=== PATIENT | male | born 1935 | race Caucasian/White ===

== ENCOUNTER 2021-06-08 08:28 | Outpatient (CLI) | payer MEDICARE, SELFPAY ==
--- NOTE | ~2021-06-08 | CT_ITS ---
EXAMINATION: CTA LE BI EXAM DATE: 06/08/2021 09:29 INDICATION: Bilateral leg pain. Lightheadedness. TECHNIQUE: Spiral CTA LE BI was performed following intravenous injection of 150 mL Omnipaque 350. A xial, coronal and sagittal images were reviewed. The dose-length product (DLP) for this examination was 944.59 mGy-cm. The exposure was tailored according to patient size (auto mA exposure control), a nd iterative reconstruction (ASIR) was used as additional dose reduction technique. Correlation is ma de to CT abdomen 09/22/2019. FINDINGS: Arteries: There is moderate aortoiliac arterial sclerosis. The renal arteries, superior and inferior mesenteric arteries, celiac artery appear widely patent. Mild scattered superficial femoral arterial sclerosis and popliteal arterial sclerosis without stenosis. There is 3 vessel runoff to the feet young aterally. Incidental findings: Large right renal cyst again seen. Adrenal glands and other organs are unremarka ble. Cholecystectomy. Normal appendix. Prostatectomy. Mild diffuse bladder wall thickening could yovani cele chronic cystitis. There are no osteoblastic or osteolytic lesions identified. IMPRESSION: Mild bilateral lower extremity arterial sclerosis. Three-vessel runoff bilaterally. Reviewed, dictated and finalized at location A. IMPRESSION: Mild bilateral lower extremity arterial sclerosis. Three-vessel run off bilaterally.
== END 2021-06-08 08:29 | disposition home or self-care (01) ==
PROVIDERS: PCP Family Medicine
DX: R42 Dizziness and giddiness (principal); M79.606 Pain in leg, unspecified; E78.5 Hyperlipidemia, unspecified; I10 Essential (primary) hypertension; F03.90 Unspecified dementia, unspecified severity, without behavioral disturbance, psychotic disturbance, mood disturbance, and anxiety; G20 Parkinson's disease; I73.9 Peripheral vascular disease, unspecified
CPT/HCPCS: 73706; Q9967

== ENCOUNTER 2021-09-14 14:58 | Outpatient (CLI) | payer MEDICARE, SELFPAY ==
--- NOTE | ~2021-09-14 | XR_ITS ---
EXAMINATION: XR lumbar spine 2-3V EXAM DATE: 09/14/2021 15:28 INDICATION: Fall 5 Months Ago, Still Having Mid Lower Back Pain. TECHNIQUE: Lumber spine frontal, lateral, lateral L5-S1 projections for interpretation. There is no prior study for comparison. FINDINGS: Minimal loss of the anterior vertebral body height from T12 through L3, likely chronic. Ext ensive aortoiliac arterial sclerosis without evidence of aneurysm. Moderate L5-S1 disc disease, mild to moderate at the other thoracolumbar levels. Moderate to severe L5-S1 facet arthropathy, mild to mo derate suspected at the other lumbar levels. There are no acute fractures identified. Sacrum, sacroil iac joints, sacral arcuate lines are intact. Pelvic surgical clips likely prostatectomy, lymph node d issection. IMPRESSION: Advanced L5-S1 spondylosis, mild to moderate at the levels above. Reviewed, dictated and finalized at location B. 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
== END 2021-09-14 14:59 | disposition home or self-care (01) ==
LOC: ANHIMG 15:01
PROVIDERS: PCP Family Medicine; Visit Provider Family Medicine
DX: M54.50 Low back pain, unspecified (principal); W19.XXXA Unspecified fall, initial encounter; M43.07 Spondylolysis, lumbosacral region
CPT/HCPCS: 72100

== ENCOUNTER 2021-09-25 07:32 | Emergency (ER) | payer MEDICARE, SELFPAY ==
[2021-09-25] VITALS (44 sets, daily range): BP systolic 131–184; BP diastolic 73–94; PULSE 90–105; RESP 11–24; TEMP 36.6; O2SAT 97–100
--- NOTE | ~2021-09-25 | XR_ITS ---
EXAMINATION: XR chest 2V EXAM DATE: 09/25/2021 08:01 INDICATION: Midline chest pain. TECHNIQUE: Frontal and lateral projections of the chest obtained and reviewed. Comparison is made to prior examination from 02/23/2014. FINDINGS: There is right upper lobe granuloma. Small amount of left basilar subsegmental atelectasis . The lungs are otherwise clear. There are no pleural effusions. The cardiomediastinal silhouette i s within normal limits. There is no pneumothorax suspected. There are bony degenerative changes. Th ere is aortic arteriosclerosis. IMPRESSION: No acute cardiopulmonary findings. Reviewed, dictated and finalized at location B. 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
--- NOTE | 2021-09-25 07:34 | ECG_ITS ---
Measurements Intervals [place] Rate: 99 P: 55 MO: 152 QRS: -16 QRSD: 130 T: 37 QT: 356 QTc: 458 Interpretive Statements SINUS RHYTHM RIGHT BUNDLE BRANCH BLOCK BASELINE ARTIFACT- I, II, III, AVF ABNORMAL ECG Electronically Signed On 09-25-2021 9:58:43 GEOMETRY TUTOR by Ilya Camara D.O.
--- NOTE | 2021-09-25 07:50 | ED.GENADULT ---
HPI - General Adult General Chief complaint: Chest Pain Stated complaint: CP Time Seen by Provider: 09/25/21 07:41 Source: patient and RN notes reviewed History of Present Illness HPI narrative: Patient is a 86 y/o male complaining of midsternal chest pain starting 2 days ago. He describes his pain as burning and rates it as 7/10. There is no pain radiation. There is no alleviating or exacerbating factor. He took Aspirin which did not help. He has no fever, cough or SOB. Related Data Allergies Allergy/AdvReac Type Severity Reaction Status Date / Time No Known Allergies Allergy Unverified 08/03/21 08:55 Review of Systems Constitutional: Constitutional: Denies chills, Denies fever(s), Denies headache(s) and Denies weakness Eyes: Eyes: Denies blurry vision ENT: Denies headache(s) and Denies neck pain Cardiovascular: Cardiovascular: Reports chest pain and Denies dyspnea Respiratory: Respiratory: Denies cough and Denies dyspnea Gastrointestinal: Gastrointestinal: Denies abdominal pain, Denies diarrhea, Denies nausea and Denies vomiting Genitourinary: Genitourinary: Denies hematuria and Denies dysuria Musculoskeletal: Musculoskeletal: Denies back pain and Denies neck pain Neurologic: Denies headache(s) and Denies weakness [facility] Past Medical History Medical History Benign essential HTN BPH (benign prostatic hyperplasia) Dementia Mixed hyperlipidemia Parkinson disease Family History Family History Mother Hypertension Sibling Malignant neoplasm of prostate, Onset Age: 62 Family history of primary malignant neoplasm of liver, Onset Age: 55 Patient's sister is Patient's brother is Father Hypertension Social History Social History Social History: Smoking status: Never smoker Second hand tobacco smoke exposure: No Alcohol intake: current Drinks per week: 1 Substance use: never Substance use type: does not use Additional living arrangements comments: Pt lives with his partner. Gender identity (if verbalized by the patient): Male Sexual Orientation (if Verbalized by the Patient): Straight or Heterosexual Exam Const: General: no acute distress and well developed Orientation/consciousness: oriented to person, oriented to place, oriented to time and patient oriented x3 HENMT: Head: normocephalic Ears: external ears normal General nose exam: Normal external nose present Eyes: General: appearance normal, both eyes and all related structures Conjunctivae: conjunctivae normal Neck: Neck: normal visual inspection and full ROM Chest: Chest palpation & inspection: normal inspection of the chest and no tenderness Resp: Effort & Inspection: normal respiratory effort Auscultation: clear to auscultation bilaterally Cardio: Rate: regular rate Rhythm: regular rhythm GI: GI Palp: No abdominal tenderness and Yes Soft to palpation Skin: General skin exam: normal color and turgor normal Neuro: General: oriented to person, oriented to place, oriented to time and patient oriented x3 Cognition (Neuro): normal cognition Extrem: General: normal to inspection, full ROM and no pedal edema Psych: Appearance: grossly normal Mental Status: mental status grossly normal Affect: normal affect Course Consultations Consultation #1: Discussed with Dr. Greenberg(cardiology), who evaluated the patient in ED and states that patient can be discharged. Date: 09/25/21 Time: 14:23 Vital Signs Vital signs: Vital Signs Temperature 36.6 C 09/25/21 07:35 Pulse Rate 99 09/25/21 07:35 Respiratory Rate 18 09/25/21 07:35 Blood Pressure 131/94 H 09/25/21 07:35 Pulse Oximetry 100 09/25/21 07:35 Temperature 36.6 C 09/25/21 07:35 Pulse Rate 93 09/25/21 14:15 Respiratory Rate 11 L 09/25/21 14
--- NOTE | 2021-09-25 08:10 | PC.NURSE ---
Patient took aspirin prior to arrival
[2021-09-25 08:36] LABS: Basophils Percent Auto 0.2 % (0.2-1.2); Eosinophils Absolute Auto 0.1 K/mm3 (0-0.3); Hematocrit 45.8 % (42.0-52.0); Hemoglobin 15.2 g/dL (14.0-18.0); Immature Granulocyte Absolute 0.09 K/mm3 (0.00-0.031); Immature Granulocyte Percent A 0.6 % (0-0.5); Lymphocytes Absolute Auto 1.16 K/mm3 (0.9-3.2); Mean Corpuscular HGB Conc 33.2 g/dl (32-36); Mean Corpuscular Hemoglobin 31.1 pg (26-34); Mean Corpuscular Volume 93.9 fl (80-100); Mean Platelet Volume 9.9 fl (7.4-10.4); Monocytes Absolute Auto 0.7 K/mm3 (0.1-0.6); Monocytes Percent Auto 4.8 % (2.6-8.5); Neutrophils Absolute Auto 12.3 K/mm3 (1.3-6.7); Neutrophils Percent Auto 85.4 % (45.5-73.1); Platelet Count Result 241 k/mm3 (150-375); Red Blood Count 4.88 M/mm3 (4.6-6.20); Red Cell Distribution Width 12.9 % (11.5-14.5); White Blood Count 14.5 K/mm3 (4.5-10.0)
[2021-09-25 09:18] LABS: Albumin Level 3.9 g/dL (3.5-5.1); Alkaline Phosphatase 60 U/L (38-126); Anion Gap 6 mmol/L (8-16); Aspartate Amino Transferase 16 U/L (17-59); Bilirubin,Total 0.8 mg/dL (0.2-1.3); Blood Urea Nitrogen 21 mg/dL (9-20); Calcium 9.2 mg/dL (8.4-10.2); Carbon Dioxide 32 mmol/L (22-30); Chloride 102 mmol/L (98-107); Estimated CRCL calculation 41 ml/min; Estimated Glomerular Filt Rate > 60; Glucose 102 mg/dL (65-110); Lipase 48 U/L (23-300); Potassium 3.8 mmol/L (3.4-5.0); Sodium 140 mmol/L (137-145)
[2021-09-25 09:21] LABS: Prothrombin Time 13.1 Seconds (11.1-14.7)
[2021-09-25 09:22] LABS: Alanine Aminotransferase < 6 U/L (4-50); Partial Thromboplastin Time 27.4 SECONDS (22.3-36.8)
[2021-09-25 09:28] LABS: Troponin I < 0.012 ng/mL (0.000-0.034)
[2021-09-25 09:35] LABS: D Dimer 0.36 ug/mL (<0.48)
[2021-09-25 12:22] LABS: Troponin I < 0.012 ng/mL (0.000-0.034)
--- NOTE | 2021-09-25 14:34 | PM.CNCAR ---
Assessment and Plan Additional Plan This is an 86-year-old man who apparently does not have any significant cardiac history despite the fact that he sees a steel plate printer for follow-up purposes. He has a chest pain syndrome that sounds atypical of angina. This pain is positional, not an exertional component. It is present for about 24 hours with no increase in his biomarkers. ECG does show a right bundle branch block but no acute ischemic abnormalities. I believe he can be discharged with follow up front with his established physicians as an outpatient. He does not have to be hospitalized in my opinion for a cardiac ischemia workup. Dmitriy Greenberg MD [facility] History of Present Illness History of Present Illness Consult date/time: 09/25/21 14:34 Consult reason: chest pain Reason For Visit: CP Narrative: This is an 86-year-old man that I have been asked to come to the emergency room and see because of chest pain to determine if it is appropriate to discharge him to home or admitted to the hospital. He is unknown to me prior to this encounter. Apparently this gentleman follows with physicians who are not on staff here at [place]. He does according to the patient and his son have a steel plate printer that he sees in [place] however they also indicate that he has no history of any cardiac problems which is somewhat it hard to understand. In any event he came to the hospital this morning because of chest pain that began yesterday he describes a aching sensation in the center to low substernal region that seems to be relatively constant since its onset it is a it is worse if he sits up or stands and is better if he lies down. There is no exertional component to this he does not have any associated symptomatology such as shortness of breath nausea vomiting or diaphoresis. There is no radiation of the pain to any other location. He came to the emergency room for evaluation where his ECG demonstrates sinus rhythm with a right bundle-branch block without any acute ischemic changes. He has laboratory data that includes 2 troponin levels that are normal. He is an elderly man been in his usual state of health he states that he is relatively active and conducts his daily activities he is able to walk around and that activity exerting himself does not typically provoke any sort of chest pain or breathlessness. He also denies any symptoms for orthopnea PND or accumulating edema. Apparently the ED staff were not comfortable discharging him to home without a formal cardiology consultation note on the record. Past medical history he states is mostly remarkable for hypertension and Parkinson's. He is a nonsmoker. Review of Systems Constitutional: Constitutional: Reports no additional constitutional complaints Eyes: Eyes: Reports no additional eye complaints ENT: Reports system reviewed and no additional complaints, except as documented Cardiovascular: Cardiovascular: Reports as per HPI Respiratory: Respiratory: Reports no additional respiratory complaints Gastrointestinal: Gastrointestinal: Reports no additional gastrointestinal complaints Musculoskeletal: Musculoskeletal: Reports as per HPI Integumentary/Breasts: Skin/Breast: Reports system reviewed and no additional complaints, except as docu Neurologic: Reports as per HPI Endocrine: Endocrine: Reports no additional endocrine complaints Hematologic/Lymphatic: Hematologic/Lymphatic: Reports no additional hematologic/lymphatic complaints Allergic/Immunologic: Allergic/Immunologic: Reports no additional allergic/immunologic complaints PMFSH Past Medical History Medical History Benign essential HTN BPH (benign prostatic hyperplasia) Dementia Mixed hyperlipidemia Parkinson disease Family History Family History Mother Hypertension Sibling Malignant neoplasm of prostate, On
--- NOTE | 2021-09-25 14:57 | PC.NURSE ---
Per RAFAT Steele, no urine specimen needed.
== END 2021-09-25 14:59 | disposition home or self-care (01) ==
PROVIDERS: Emergency Provider Emergency Medicine; PCP Family Medicine
DX: R07.2 Precordial pain (principal); F03.90 Unspecified dementia, unspecified severity, without behavioral disturbance, psychotic disturbance, mood disturbance, and anxiety; G20 Parkinson's disease; E78.2 Mixed hyperlipidemia; I10 Essential (primary) hypertension; N40.0 Benign prostatic hyperplasia without lower urinary tract symptoms; I45.10 Unspecified right bundle-branch block
CPT/HCPCS: 36415; 71046; 80053; 83690; 84484; 85025; 85380; 85610; 85730; 93005; 99284

== ENCOUNTER 2022-04-23 13:45 | Emergency (ER) | payer MEDICARE, SELFPAY ==
--- NOTE | ~2022-04-23 | CT_ITS ---
EXAMINATION: CT brain wo con DATE: 04/23/2022 14:41 INDICATION: Fall. Head injury. TECHNIQUE: Computed tomography (CT) of the head was performed without intravenous contrast. The mA wa s adjusted according to patient size. Iterative reconstruction technique was employed. Exam dose: 68 1.00 mGy-cm total exam DLP. COMPARISON: CT brain FINDINGS: Carotid siphon and supraclinoid internal carotid calcification. There is nonspecific dimini shed attenuation of the cerebral white matter, likely due to chronic small vessel ischemic changes. No intracranial mass lesion or hemorrhage or cerebrovascular accident is detected. No midline shift o r mass effect. No fracture or bone destruction of the cranial vault There is patchy soft tissue thickening of the ethmoid air cells. Minimal mucoperiosteal thickening of the sphenoid sinuses. The mastoid air cells are normally developed and aerated. No fracture or bone destruction of the cranial vault. IMPRESSION: Cerebral atherosclerosis and chronic small vessel ischemic changes of the cerebral white matter No acute intracranial finding Reviewed, dictated and finalized at Location A. Reviewed, dictated and finalized at location A.
--- NOTE | ~2022-04-23 | XR_ITS ---
XR hand LT min 3V 04/23/2022 14:05 Indication: Status post fall. Left thumb pain. Procedure: 3 views left hand Comparison: No prior studies for comparison. Findings: There is an avulsion fracture involving the base of the first distal phalanx. There is disl ocation at the interphalangeal joint. 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 Osteopenia. The re is advanced osteoarthritis of the triscaphe and first CMC joints. Impression: 1: Displaced fracture/dislocation at the left first interphalangeal joint involving the base of the d istal phalanx.. Reviewed, dictated and finalized at location A. Impression: 1: Displaced fracture/dislocation at the left first interphalangeal joint invol ving the base of the distal phalanx..
--- NOTE | ~2022-04-23 | XR_ITS ---
XR finger 1st LT min 2V DATE: 04/23/2022 14:46 INDICATION: Post reduction TECHNIQUE: 2 postreduction views of the left first digit COMPARISON: 04/23/2022 left hand FINDINGS: There is reduction of the dislocation at the interphalangeal joint of the first digit. Ther e is a laterally and proximally displaced intra-articular corner fracture of the medial base of the d istal phalanx. Prominent osteoarthritic change at the first carpometacarpal and first metacarpophalangeal and interp halangeal joints. IMPRESSION: Reduction of dislocation at the interphalangeal joint of first digit; mildly proximally a nd laterally displaced intra-articular fracture of the medial base of the distal phalanx Reviewed, dictated and finalized at location A. IMPRESSION: Reduction of dislocation at the interphalangeal joint of first digi t; mildly proximally and laterally displaced intra-articular fracture of the me dial base of the distal phalanx
[2022-04-23 13:51] VITALS: BP 120/49; PULSE 88; RESP 14; TEMP 36.7; O2SAT 98
--- NOTE | 2022-04-23 14:20 | ED.UPPEXIN ---
HPI - Extremity Injury (Upper) General Chief Complaint: Extremity Injury, Upper <Yesy Strauss PA-C - Last Filed: 04/23/22 17:47> Stated Complaint: left thumb injury <CHACHA Inman Last Filed: 04/23/22 17:47> Time Seen by Provider: 04/23/22 13:49 <Yesy Strauss PA-C - Last Filed: 04/23/22 17:47> Source: patient and family <CHACHA Inman Last Filed: 04/23/22 17:47> Mode of arrival: ambulatory <CHACHA Inman Last Filed: 04/23/22 17:47> Limitations: no limitations <CHACHA Inman Last Filed: 04/23/22 17:47> History of Present Illness HPI narrative: Patient is an 87 y/o male, with a history of Parkinson's disease, who presents to the ED with his with complaints of left thumb injury. Patient's reports he was carrying groceries into their house when he slipped and fell. He hit his head on the ground but denied loss of consciousness. He sustained an injury to his left first digit. Obvious deformity, which prompted them to come to the ED. Patient denies any other injuries. Denies any other pain currently. No wounds. Patient at mental status baseline per . <Yesy Strauss PA-C - Last Filed: 04/23/22 17:47> Related Data Home Medications: Home Medications Medication Instructions Recorded Confirmed lisinopril 20 mg tablet 20 mg PO BID 02/13/22 02/13/22 <Yesy Strauss PA-C - Last Filed: 04/23/22 17:47> Allergies/Adverse Reactions: Allergies Allergy/AdvReac Type Severity Reaction Status Date / Time No Known Allergies Allergy Unverified 02/13/22 13:05 <CHACHA Inman Last Filed: 04/23/22 17:47> Review of Systems Review of Systems: CONSTITUTIONAL: Denies fever, chills, or sweats. EYES: Denies visual changes. CARDIOVASCULAR: Denies chest pain. RESPIRATORY: Denies cough or dyspnea. GASTROINTESTINAL: Denies abdominal pain, nausea, vomiting. SKIN: Denies wounds. MUSCULOSKELETAL: Reports pain and deformity to left first digit. NEUROLOGIC: Denies headache, numbness, or weakness. <Yesy Strauss PA-C - Last Filed: 04/23/22 17:47> All systems reviewed & are unremarkable except as noted in HPI and below <Yesy Strauss PA-C - Last Filed: 04/23/22 17:47> PMFSH Past Medical History Medical History: Medical History (Updated 04/23/22 @ 15:04 by Yesy Strauss PA-C) Benign essential HTN BPH (benign prostatic hyperplasia) Dementia Mixed hyperlipidemia Parkinson disease <Yesy Strauss PA-C - Last Filed: 04/23/22 17:47> Surgical History Surgical History: Surgical History (Updated 04/23/22 @ 14:56 by Yesy Strauss PA-C) History of colonoscopy <Yesy Strauss PA-C - Last Filed: 04/23/22 17:47> Family History Family History: Family History Mother Hypertension Sibling Malignant neoplasm of prostate, Onset Age: 62 Family history of primary malignant neoplasm of liver, Onset Age: 55 Patient's sister is Patient's brother is Father Hypertension <Yesy Strauss PA-C - Last Filed: 04/23/22 17:47> Social History Social History: Social History Social History: Smoking status: Never smoker Second hand tobacco smoke exposure: No Alcohol intake: current Alcohol use details: Occasionally Substance use: never Substance use type: does not use Additional living arrangements comments: Pt lives with his partner. Gender identity (if verbalized by the patient): Male Sexual Orientation (if Verbalized by the Patient): Straight or Heterosexual <Yesy Strauss PA-C - Last Filed: 04/23/22 17:47> Exam Narrative: GENERAL: Well appearing, well-nourished, non-toxic, in no acute distress. HEAD: Normocephalic, atraumatic. EYES: PERRL/EOMI, conjunctivae clear bilaterally. NECK: Supple. No adenopathy, no masses. RESPIRATORY:
[2022-04-23 15:29] VITALS: BP 148/62; PULSE 79; RESP 18; O2SAT 100
== END 2022-04-23 15:25 | disposition home or self-care (01) ==
PROVIDERS: Emergency Provider Emergency Medicine; PCP Family Medicine
DX: S62.522A Displaced fracture of distal phalanx of left thumb, initial encounter for closed fracture (principal); G20 Parkinson's disease; F03.90 Unspecified dementia, unspecified severity, without behavioral disturbance, psychotic disturbance, mood disturbance, and anxiety; I10 Essential (primary) hypertension; E78.2 Mixed hyperlipidemia; N40.0 Benign prostatic hyperplasia without lower urinary tract symptoms; W01.0XXA Fall on same level from slipping, tripping and stumbling without subsequent striking against object, initial encounter
CPT/HCPCS: 26770; 70450; 73130; 73140; 99285

== ENCOUNTER 2022-06-16 11:03 | Outpatient (CLI) | payer MEDICARE, SELFPAY ==
[2022-06-16 12:09] LABS: Appearance Urine Clear (Clear); Bilirubin Urine Negative (Negative); Color Urine Yellow (Yellow); Glucose Urine UA Negative (Negative); Ketones Urine 1+ mg/dL (Negative); Leukocyte Esterase Ur Negative LEU/UL (Negative); Nitrate Urine Negative (Negative); Protein Urine Trace mg/dL (Negative); Specific Grav Ur >= 1.030 (1.001-1.035)
[2022-06-16 13:06] LABS: Add Urine Microscopic? YES; Blood Urine Trace-Intact (Negative)
[2022-06-16 13:07] LABS: RBC Urine 0-2 /hpf (0-2); Squamous Epithelial Cell Urine Occasional /hpf (Few); WBC Urine 0-3 /hpf (0-3)
[2022-06-16 13:09] LABS: Mucus Urine Few /lpf
== END 2022-06-16 11:04 | disposition home or self-care (01) ==
PROVIDERS: PCP Family Medicine; Visit Provider Physician Assistant
DX: R41.82 Altered mental status, unspecified (principal)
CPT/HCPCS: 81001

== ENCOUNTER 2022-06-20 12:09 | Outpatient (CLI) | payer MEDICARE, SELFPAY ==
--- NOTE | ~2022-06-20 | CT_ITS ---
EXAMINATION: CT brain wo con DATE: 06/20/2022 12:36 INDICATION: Head injury. TECHNIQUE: Computed tomography (CT) of the head was performed without intravenous contrast. The mA wa s adjusted according to patient size. Iterative reconstruction technique was employed. The dose-lengt h product was 605.33 mGy-cm. COMPARISON: Head CT 04/23/2022 FINDINGS: There are scattered areas of low attenuation in the cerebral white matter, which is within normal limits for the patient's age. There is no intracranial hemorrhage, acute infarction, or abnorm al intracranial mass lesion. The ventricles are normal in size. There is mild mucosal thickening in t he paranasal sinuses. The orbits are normal. The mastoid air cells are normal. IMPRESSION: 1. Normal aging brain. Reviewed, dictated and finalized at location A. IMPRESSION: 1. Normal aging brain.
[2022-06-20 13:23] LABS: Basophils Absolute Auto 0.1 K/mm3 (0.0-0.1); Basophils Percent Auto 0.6 % (0.2-1.2); Eosinophils Absolute Auto 0.1 K/mm3 (0-0.3); Eosinophils Percent Auto 0.9 % (0-4.4); Hematocrit 44.4 % (42.0-52.0); Hemoglobin 13.1 g/dL (14.0-18.0); Immature Granulocyte Absolute 0.02 K/mm3 (0.00-0.031); Immature Granulocyte Percent A 0.3 % (0-0.5); Lymphocytes Percent Auto 14.1 % (18.3-44.2); Mean Corpuscular HGB Conc 29.5 g/dl (32-36); Mean Corpuscular Hemoglobin 31.5 pg (26-34); Mean Corpuscular Volume 106.7 fl (80-100); Mean Platelet Volume 9.5 fl (7.4-10.4); Monocytes Absolute Auto 0.4 K/mm3 (0.1-0.6); Monocytes Percent Auto 5.6 % (2.6-8.5); Neutrophils Absolute Auto 6.1 K/mm3 (1.3-6.7); Neutrophils Percent Auto 78.5 % (45.5-73.1); Platelet Count Result 211 k/mm3 (150-375); Red Blood Count 4.16 M/mm3 (4.6-6.20); Red Cell Distribution Width 13.8 % (11.5-14.5); White Blood Count 7.8 K/mm3 (4.5-10.0)
[2022-06-20 13:34] LABS: Albumin Level 3.7 g/dL (3.5-5.1); Alkaline Phosphatase 60 U/L (38-126); Anion Gap 14 mmol/L (8-16); Aspartate Amino Transferase 69 U/L (17-59); Bilirubin,Total 0.8 mg/dL (0.2-1.3); Blood Urea Nitrogen 28 mg/dL (9-20); Calcium 8.9 mg/dL (8.4-10.2); Carbon Dioxide 20 mmol/L (22-30); Chloride 104 mmol/L (98-107); Estimated Glomerular Filt Rate > 60; Glucose 86 mg/dL (65-110); Potassium 4.4 mmol/L (3.4-5.0); Sodium 138 mmol/L (137-145)
[2022-06-20 13:37] LABS: Alanine Aminotransferase < 4 U/L (6-50)
[2022-06-20 13:38] LABS: Add Urine Microscopic? YES; Appearance Urine Cloudy (Clear); Bacteria Urine Trace /hpf; Bilirubin Urine Negative (Negative); Blood Urine Negative (Negative); Color Urine Amber (Yellow); Glucose Urine UA Negative (Negative); Ketones Urine Trace mg/dL (Negative); Leukocyte Esterase Ur Negative LEU/UL (Negative); Mucus Urine Rare /lpf; Nitrate Urine Negative (Negative); Protein Urine Negative (Negative); RBC Urine 0-2 /hpf (0-2); Specific Grav Ur 1.019 (1.001-1.035); Urobilinogen Urine Negative mg/dL (<2.0); WBC Urine 0-3 /hpf
== END 2022-06-20 12:10 | disposition home or self-care (01) ==
PROVIDERS: PCP Family Medicine; Visit Provider Nurse Practitioner Gerontology
DX: R30.0 Dysuria (principal); R41.82 Altered mental status, unspecified; S00.93XA Contusion of unspecified part of head, initial encounter
CPT/HCPCS: 36415; 70450; 80053; 81001; 84443; 85025

== ENCOUNTER 2023-04-04 09:19 | Observation (INO) | payer MEDICARE, SELFPAY ==
[2023-04-04] VITALS (49 sets, daily range): BP systolic 114–226; BP diastolic 60–95; PULSE 64–97; RESP 8–24; TEMP 36.4–36.9; O2SAT 96–100; BMI 20.1
--- NOTE | ~2023-04-04 | XR_ITS ---
XR chest 2V 04/04/2023 09:57 Indication: Chest pain Procedure: AP and lateral views of the chest Comparison: 09/25/2021 Findings: Heart size normal. No focal air space disease, pulmonary edema, pleural effusion or suspect ed pneumothorax. Calcified granuloma right apex. No acute osseous abnormality. Mild thoracic spondylo sis. Impression: 1: No acute cardiopulmonary disease. Reviewed, dictated and finalized at location L. Impression: 1: No acute cardiopulmonary disease.
--- NOTE | 2023-04-04 09:20 | ECG_ITS ---
Measurements Intervals [place] Rate: 76 P: 33 [place]: 158 QRS: -28 QRSD: 130 T: 1 QT: 381 QTc: 430 Interpretive Statements SINUS RHYTHM BORDERLINE LEFT AXIS DEVIATION [QRS AXIS < -20] RIGHT BUNDLE BRANCH BLOCK [120+ ms QRS DURATION, UPRIGHT V1, 40+ ms S IN I/aVL/V4/V5/V6] COMPARED TO ECG 09/25/2021 07:43:23 NO SIGNIFICANT CHANGES Electronically Signed On 04-04-2023 13:32:52 CDT by Loraine Kolb M.D.
[2023-04-04 09:36] LABS: Basophils Percent Auto 0.4 % (0.2-1.2); Eosinophils Absolute Auto 0.1 K/mm3 (0-0.3); Eosinophils Percent Auto 1.6 % (0-4.4); Hematocrit 38.3 % (42.0-52.0); Hemoglobin 12.1 g/dL (14.0-18.0); Immature Granulocyte Absolute 0.02 K/mm3 (0.00-0.031); Immature Granulocyte Percent A 0.3 % (0-0.5); Lymphocytes Absolute Auto 1.39 K/mm3 (0.9-3.2); Lymphocytes Percent Auto 18.3 % (18.3-44.2); Mean Corpuscular HGB Conc 31.6 g/dl (32-36); Mean Corpuscular Hemoglobin 30.6 pg (26-34); Mean Corpuscular Volume 96.7 fl (80-100); Mean Platelet Volume 9.6 fl (7.4-10.4); Monocytes Absolute Auto 0.5 K/mm3 (0.1-0.6); Neutrophils Absolute Auto 5.6 K/mm3 (1.3-6.7); Neutrophils Percent Auto 73.4 % (45.5-73.1); Platelet Count Result 234 k/mm3 (150-375); Red Blood Count 3.96 M/mm3 (4.6-6.20); Red Cell Distribution Width 13.9 % (11.5-14.5); White Blood Count 7.6 K/mm3 (4.5-10.0)
[2023-04-04 09:47] LABS: Prothrombin Time 13.9 Seconds (11.1-14.7)
[2023-04-04 09:48] LABS: Partial Thromboplastin Time 26.5 SECONDS (22.3-36.8)
[2023-04-04 09:57] LABS: Alanine Aminotransferase 7 U/L (6-50); Albumin Level 3.6 g/dL (3.5-5.1); Alkaline Phosphatase 43 U/L (38-126); Anion Gap 0 mmol/L (8-16); Aspartate Amino Transferase 22 U/L (17-59); Bilirubin,Total 0.7 mg/dL (0.2-1.3); Blood Urea Nitrogen 38 mg/dL (9-20); Calcium 8.6 mg/dL (8.4-10.2); Carbon Dioxide 34 mmol/L (22-30); Chloride 104 mmol/L (98-107); Estimated Glomerular Filt Rate > 60; Glucose 104 mg/dL (65-110); Lipase 63 U/L (23-300); Potassium 4.4 mmol/L (3.4-5.0); Sodium 138 mmol/L (137-145)
[2023-04-04 10:12] LABS: Troponin I < 0.012 ng/mL (0.000-0.034)
--- NOTE | 2023-04-04 10:16 | ED.CHESTPAIN ---
HPI - Chest Pain General Chief Complaint: Chest Pain <Alexandria Wilson PA-C - Last Filed: 04/04/23 19:28> Stated Complaint: chest pain <Alexandria Wilson PA-C - Last Filed: 04/04/23 19:28> Time Seen by Provider: 04/04/23 09:49 <Alexandria Wilson PA-C - Last Filed: 04/04/23 19:28> History of Present Illness HPI narrative: 88-year-old male with a history of Parkinson's disease, dementia, hyperlipidemia, hypertension, peripheral vascular disease reports via EMS for evaluation of chest pain that started at 2 AM this morning while patient was sleeping. He presents with his who assists with history. Patient describes a pain as substernal, constant and sharp in nature. It does not radiate anywhere. There are no alleviating or aggravating factors. Patient's reports she gave the patient 5 baby aspirin's at 8 AM this morning. She states the patient had ribs and 2 sandwiches for dinner last night and is questioning whether the chest pain is secondary to indigestion. 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 They are not sure if the patient had an echo and/or stress test. Pt does not have any personal cardiac history other than HTN and HLD. His brother has had an [place] and pacemaker placed when he was <65 y/o.. Pt denies dyspnea, n/v, diaphoresis, back pain, neck pain, fever, cough, lower extremity edema. <Alexandria Wilson PA-C - Last Filed: 04/04/23 19:28> Related Data Home Medications: Home Medications Medication Instructions Recorded Confirmed carbidopa 25 mg-levodopa 100 mg 2 tablet PO QID 04/04/23 04/04/23 tablet lisinopril 20 mg tablet 20 mg PO BID 04/04/23 04/04/23 <Alexandria Wilson PA-C - Last Filed: 04/04/23 19:28> Allergies/Adverse Reactions: Allergies Allergy/AdvReac Type Severity Reaction Status Date / Time No Known Allergies Allergy Verified 11/20/22 14:55 <Alexandria Wilson PA-C - Last Filed: 04/04/23 19:28> Review of Systems Review of Systems: CONSTITUTIONAL: Denies fever, chills EYES: Denies visual changes, redness, or discharge. ENT: Denies rhinorrhea, congestion, sore throat, or otalgia. CARDIOVASCULAR: See HPI RESPIRATORY: Denies cough or dyspnea. GASTROINTESTINAL: Denies abdominal pain, nausea, vomiting, or diarrhea. GENITOURINARY: Denies dysuria or hematuria. SKIN: Denies rash or itching. MUSCULOSKELETAL: Denies back pain, joint pain, or myalgia. NEUROLOGIC: Denies headache, numbness, dizziness, or weakness. PSYCHIATRIC: Denies anxiety or depression. <Alexandria Wilson PA-C - Last Filed: 04/04/23 19:28> [facility] Past Medical History Medical History: Medical History (Updated 04/04/23 @ 14:59 by Aliyah Oakes PA-C) Benign prostatic hyperplasia Dementia Dyslipidemia Essential (primary) hypertension Memory loss Mixed hyperlipidemia Parkinson disease Psychophysiological insomnia Right bundle branch block Slow transit constipation Vocal cord dysfunction <Alexandria Wilson PA-C - Last Filed: 04/04/23 19:28> Surgical History Surgical History: Surgical History History of colonoscopy <Alexandria Wilson PA-C - Last Filed: 04/04/23 19:28> Family History Family History: Family History Mother Hypertension Sibling Malignant neoplasm of prostate, Onset Age: 62 Family history of primary malignant neoplasm of liver, Onset Age: 55 Patient's sister is Patient's brother is Father Hypertension <Alexandria Wilson PA-C - Last Filed: 04/04/23 19:28> Social History Social History: Social History (Updated 04/04/23 @ 18:01 by Aliyah Oakes PA-C) Smoking status: Former smoker Second hand tobacco smoke exposure: No Alcohol intake: never Alcohol use details: Occasional alcohol use in moderation.
--- NOTE | 2023-04-04 10:26 | PC.NURSE ---
Per STAR Simental ASA not administered.
[2023-04-04] MEDS: FAMOTIDINE 20 MG/2 ML VIAL IV PUSH (10:32)
[2023-04-04 10:47] LABS: D Dimer 0.48 ug/mL (<0.48)
[2023-04-04 10:55] LABS: NT Pro B Type Natriuretic Pept 195 pg/mL (19.9-100)
[2023-04-04 12:47] LABS: Troponin I < 0.012 ng/mL (0.000-0.034)
--- NOTE | 2023-04-04 14:53 | PM.IMHP ---
H&P: HPI History of Present Illness Date/Time: 04/04/23 15:30 Chief Complaint: Chest pain. Narrative: This is an 88-year-old male with Parkinson's disease, dementia, hypertension, hyperlipidemia, and benign prostatic hyperplasia who presented to the emergency department via EMS from home for evaluation of chest pain. The patient provides the following history but he is somewhat forgetful and his assists with history, with the patient's permission. He was wakened from sleep at about 02:00 with sharp and nonradiating substernal chest discomfort which lasted several hours before resolving without intervention. He had mild nausea with that but denies vomiting, sweats, shortness of breath, palpitations, and pleuritic pain. Symptoms have not recurred. At the time my evaluation he feels fine and has no complaints. He has occasional belching but no bloating, epigastric, or abdominal pain. He endorses mild nausea with the pain earlier today but that has since resolved and he denies vomiting. He was able to eat lunch today without issue. He has not had any symptoms of indigestion recently and does not think his symptoms are related to heartburn. He has not noticed any dark stools or bright red blood in the stools. No syncope or near syncope. In the ED he received aspirin 324 mg p.o. and famotidine 20 mg IV and he is being admitted in this setting to rule out acute coronary syndrome. Review of Systems Review of Systems: Twelve systems were reviewed and are negative except for as per HPI. COUNT INCLUDES THE [facility] Past Medical History Medical History (Updated 04/04/23 @ 14:59 by lAiyah Oakes PA-C) Benign prostatic hyperplasia Dementia Dyslipidemia Essential (primary) hypertension Memory loss Mixed hyperlipidemia Parkinson disease Psychophysiological insomnia Right bundle branch block Slow transit constipation Vocal cord dysfunction Surgical History Surgical History (Updated 04/05/23 @ 13:48 by Aliyah Oakes PA-C) History of colonoscopy History of prostatectomy Family History Family History Mother Hypertension Sibling Malignant neoplasm of prostate, Onset Age: 62 Family history of primary malignant neoplasm of liver, Onset Age: 55 Patient's sister is Patient's brother is Father Hypertension Social History Social History (Updated 04/04/23 @ 18:01 by Aliyah Oakes PA-C) Smoking status: Former smoker Second hand tobacco smoke exposure: No Alcohol intake: never Alcohol use details: Occasional alcohol use in moderation. Substance use: never Substance use type: does not use Lack of Transportation: No Lack of Food: Never True Current Housing: I Have Housing Concerned About Future Housing: No Difficulty Paying Gas/Electric Bills: No Difficulty Paying for Meds: No Currently Unemployed: No Education: Master's Degree or Higher Difficulty w/ Childcare or Family Care: No Living arrangements: with family Additional living arrangements comments: and remarried about 5 years ago. 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 Spiritual care concerns: No Meds Home Medications and Allergies Home Medications Medication Instructions Recorded Confirmed Type oxybutynin chloride 5 mg 10 mg PO DAILY #180 tabs 02/13/23 04/04/23 Rx tablet,extended release 24 hr carbidopa 25 mg-levodopa 100 mg 2 tablet PO QID 04/04/23 04/04/23 History tablet lisinopril 20 mg tablet 20 mg PO BID 04/04/23 04/04/23 History Allergies Allergy/AdvReac Type Severity Reaction Status Date / Time No Known Allergies Allergy Verified 11/20/22 14:55 Vital Signs Vital Signs - 24 hr 04/04/23 09:22 04/04/23 09:40 04/04/23 09:41 Temperature 97.8 F Pulse Rate 77 72 72 Respiratory Rate 16 8 L 9 L Blood Pressure 114/90 122/66 Pulse Oximetry 97 98 100
--- NOTE | 2023-04-04 14:59 | ADMGEN ---
This patient, Charles Asencio, was admitted to IMU Room 231-01. Patient/family oriented to hospital policies and general routines including ID bracelet, bed and alarms, visiting hours, pain management, procedures, bathroom and other care routines, personal items, smoking policy, room service/diet, and visiting hours. Information on how to activate the Rapid Response Team has been discussed. Patient/Family are encouraged to report perceived risks to care and to ask questions if they do not understand what they are told or what they should do.
[2023-04-04 16:17] LABS: Troponin I < 0.012 ng/mL (0.000-0.034)
[2023-04-04] MEDS: lisinopriL 20 MG TABLET PO (16:21)
--- NOTE | 2023-04-04 16:43 | PC.NURSE ---
destiny newman sent home with .
[2023-04-04 17:04] LABS: Iron 103 ug/dL (49-181)
[2023-04-04 17:14] LABS: Percent Iron Saturation 39 % (20-50)
[2023-04-04 17:17] LABS: Appearance Urine Clear (Clear); Bilirubin Urine Negative (Negative); Blood Urine Negative (Negative); Color Urine Yellow (Yellow); Glucose Urine UA Negative (Negative); Ketones Urine Negative (Negative); Leukocyte Esterase Ur Negative LEU/UL (Negative); Nitrate Urine Negative (Negative); Protein Urine Negative (Negative); Specific Grav Ur 1.011 (1.001-1.035); Urobilinogen Urine 0.2 mg/dL (<2.0)
[2023-04-04 17:24] LABS: Add Urine Microscopic? NO
[2023-04-04 17:45] LABS: Folic Acid 10.2 ng/mL (2.76->20); Vitamin B12 > 1000.0 pg/mL (239-931)
[2023-04-04] MEDS: CARBIDOPA/LEVODOPA 25/100 MG TABLET 2 TABLET PO (23:13)
[2023-04-05] VITALS (8 sets, daily range): BP systolic 104–183; BP diastolic 39–83; PULSE 60–90; RESP 12–20; TEMP 36.4–36.6; O2SAT 99–100
[2023-04-05] MEDS: oxyBUTYnin CHLORIDE XL 5 MG TAB.ER.24 10 MG PO (09:37)
[2023-04-05] MEDS: lisinopriL 20 MG TABLET PO (09:38)
[2023-04-05] MEDS: CARBIDOPA/LEVODOPA 25/100 MG TABLET 2 TABLET PO (09:38)
[2023-04-05] MEDS: ASPIRIN 81 MG CHEWABLE TABLET PO (09:39)
--- NOTE | 2023-04-05 11:59 | PM.DS ---
DS: Admitting Diagnosis Discharge Date 04/05/23 Admitting Diagnosis Chest pain DS: Discharge Diagnosis Discharge Diagnosis (1) Chest pain: Qualifiers: Chest pain type: other chest pain Qualified Code(s): R07.89 - Other chest pain Code(s): R07.9 - Chest pain, unspecified Status: Acute (2) Elevated BUN: Code(s): R79.9 - Abnormal finding of blood chemistry, unspecified Status: Acute (3) Normocytic anemia: Code(s): D64.9 - Anemia, unspecified Status: Acute (4) Essential (primary) hypertension: Code(s): I10 - Essential (primary) hypertension Status: Acute (5) Parkinson disease: Code(s): G20 - Parkinson's disease Status: Acute (6) Dementia: Qualifiers: Dementia type: Parkinson's disease Dementia behavioral disturbance: without behavioral disturbance Qualified Code(s): G20 - Parkinson's disease; F02.80 - Dementia in other diseases classified elsewhere without behavioral disturbance Code(s): F03.90 - Unspecified dementia, unspecified severity, without behavioral disturbance, psychotic disturbance, mood disturbance, and anxiety Status: Acute DS: Summary Hospital Course Reason for hospitalization: 88yo male with Parkinson's disease, dementia, HTN, HLD, and BPH here for evaluation of chest pain. Please see H&P for details. Hospital Course: The patient was awoken from sleep with sharp, nonradiating substernal chest discomfort which lasted several hours before resolving without intervention. Patient was hemodynamically stable on admission. PT/PTT and DDimer were normal. Hgb slightly low with elevated MCV. TSH, B12 and folate normal. Iron studies were normal except slightly low TIBC. Troponin negative x3. EKG showing NSR, Rt BBB but no change from prior. CXR was clear. He has not had recurrent symptoms of chest pain since admission. Spoke with patient and about proceeding with stress test but they both felt this was unnecessary. They felt chest pain related to overeating the night before. They voiced understanding of the risk of not having the procedure done including recurrent chest pain, AMI or . The patient did well and was able to be discharged home on 04/05/23. Status at Discharge Cognitive/behavioral status at discharge: Stable Time Spent with Patient Time attestation: Total time spent providing and/or coordinating discharge services: 34 minutes Time spent: Greater than 30 minutes Exam Narrative: AF 97.5 183/83 72 12 100% ra Gen - NARD Chest - CTA bilaterally, nml RR CV - RRR S1/S2. Tele showing PVCs Abd - Soft, NT/ND, Positive BS Ext - No pedal edema Psych - Nml mood and affect Skin - Warm and dry DS: Data Data Completed and Pending Labs on day of discharge: Labs from last 24 hours 04/04/23 04/04/23 04/04/23 16:58 15:43 12:19 Iron 103 TIBC 261 L % Saturation 39 Ferritin 62.00 Troponin I < 0.012 < 0.012 Vitamin B12 > 1000.0 H Folate 10.2 TSH (Reflex) 1.450 Urine Color Yellow Urine Appearance Clear Urine pH 6.0 Ur Specific [place] 1.011 Urine Protein Negative Urine Glucose (UA) Negative Urine Ketones Negative Ur Blood (Man) Negative Urine Nitrate Negative Urine Bilirubin Negative Urine Urobilinogen 0.2 Leukocyte Esterase Rfl Negative Discharge Plan Discharge Attending physician on discharge: Fracisco Powell Consulting providers: Alexandria Wilson Discharging Clinician: Fracisco Powell Anticipated Discharge Date/Time: 04/05/23 12:10 Patient Disposition: Home, Self-Care Activity: as tolerated Diet: heart healthy Discharge Instructions: Check blood pressure 1 to 2 times a day. Record and bring into your doctor for review. Call your doctor if your blood pressure is greater than 180/110. Take precautions to avoid falls. Rise slowly from a lying or sitting position. Pause be
== END 2023-04-05 12:47 | disposition home or self-care (01) ==
LOC: ANHED 11:04 → ANHIMU 15:13 → ANH3MEDSUR 04-08 12:46 → ANHIMU 04-08 12:46
PROVIDERS: Emergency Medicine; Physician Assistant; Admitting Provider Family Medicine; Emergency Provider Physician Assistant; PCP Family Medicine; Visit Provider Internal Medicine
DX: R07.89 Other chest pain (principal); R79.9 Abnormal finding of blood chemistry, unspecified; D64.9 Anemia, unspecified; I10 Essential (primary) hypertension; G20 Parkinson's disease; F02.80 Dementia in other diseases classified elsewhere, unspecified severity, without behavioral disturbance, psychotic disturbance, mood disturbance, and anxiety; E78.5 Hyperlipidemia, unspecified; I73.9 Peripheral vascular disease, unspecified; N40.0 Benign prostatic hyperplasia without lower urinary tract symptoms; F51.04 Psychophysiologic insomnia; I45.10 Unspecified right bundle-branch block; F10.90 Alcohol use, unspecified, uncomplicated; Z79.899 Other long term (current) drug therapy; Z87.891 Personal history of nicotine dependence; Z82.49 Family history of ischemic heart disease and other diseases of the circulatory system
CPT/HCPCS: 36415; 71046; 80053; 81003; 82607; 82728; 82746; 83540; 83550; 83690; 83880; 84443; 84484; 85025; 85380; 85610; 85730; 93005; 96374; 99285; A9270; G0378

== ENCOUNTER 2023-04-22 09:12 | Emergency (ER) | payer MEDICARE, SELFPAY ==
--- NOTE | ~2023-04-22 | CT_ITS ---
EXAMINATION: CT cervical spine wo con DATE: 04/22/2023 10:00 INDICATION: Fall with shoulder pain TECHNIQUE: Computed tomography (CT) of the cervical spine was performed without intravenous contrast. Automated exposure control and iterative reconstruction technique were employed. The dose-length pro duct was 159.71 mGy-cm. COMPARISON: None FINDINGS: Alignment is normal. Vertebral body heights are normal. No fracture. Moderate disc height loss at C5- C6 and mild disc height loss at C6-C7. Disc bulges resulting in mild central canal stenosis at both l evels. Left-sided predominant bilateral multilevel severe cervical facet osteoarthritis. There is pos terior fusion across the left C4-C5 facet joint. There is also multilevel moderate to severe cervical uncovertebral osteoarthritis. This contributes to moderate neural foraminal stenosis on the left at C3-C4 and C4-C5 and on the right at C5-C6 and mild neural from stenosis at the remaining levels bilat erally. Atherosclerotic calcifications at the bilateral carotid bulbs. Cervical soft tissues are othe rwise unremarkable. Visualized apices of lungs are clear. IMPRESSION: 1. Moderate cervical spondylosis. No acute osseous abnormality. Reviewed, dictated and finalized at location A.
--- NOTE | ~2023-04-22 | CT_ITS ---
EXAMINATION: CT diagnostic chest wo con DATE: 04/22/2023 11:02 INDICATION: Chest pain after fall TECHNIQUE: Computed tomography (CT) of the chest was performed without intravenous contrast. The dose -length product (DLP) was 200.95 mGy-cm. Automated exposure control and iterative reconstruction tech nique were employed. COMPARISON: None FINDINGS: There is mild dependent atelectasis. No pleural effusion or pneumothorax. Calcified pulmona ry nodules and calcified right hilar lymph nodes are consistent with old granulomatous disease. No pa thologically enlarged thoracic lymph nodes are identified. The heart size is normal. Calcified roberts ry artery atherosclerosis is noted. There is an acute, oblique fracture of the distal right clavicle. There appear to be old healed fractures of the right sixth and seventh ribs. IMPRESSION: 1. Acute oblique fracture of the distal right clavicle. 2. No acute cardiopulmonary abnormality. Reviewed, dictated and finalized at location B.
--- NOTE | ~2023-04-22 | XR_ITS ---
EXAMINATION: XR shoulder RT min 2V DATE: 04/22/2023 10:19 INDICATION: Anterolateral right shoulder pain and limited range of motion post fall TECHNIQUE: AP internally and externally rotated, AP oblique externally rotated and transscapular Y vi ews of the right shoulder were obtained. COMPARISON: None FINDINGS: Oblique extra-articular fracture at the lateral right clavicle with 5 mm cephalad displacement of the medial side of the fracture. Normal alignment with moderate osteoarthritis at the right glenohumeral and acromioclavicular joints. Calcified nodule at the right upper lung zone and calcified right harmony r lymph nodes consistent with old granulomatous disease. IMPRESSION: Mild displacement of an extra articular fracture of the lateral right clavicle. Reviewed, dictated and finalized at location A.
--- NOTE | ~2023-04-22 | XR_ITS ---
EXAMINATION: XR ankle RT min 3V DATE: 04/22/2023 11:06 INDICATION: Right ankle pain post fall TECHNIQUE: Anteroposterior, oblique, mortise, and lateral views of the right ankle were obtained. COMPARISON: None. FINDINGS: Alignment is normal. No fracture. Joint spaces are well maintained. Achilles calcaneal enthesophyte. No ankle joint effusion. Soft tissue swelling about the distal lower leg and ankle most prominent ov er the lateral malleolus. IMPRESSION: 1. No acute osseous abnormality. Reviewed, dictated and finalized at location A.
--- NOTE | ~2023-04-22 | XR_ITS ---
Left ankle Technique: AP, oblique, and lateral views were obtained. Clinical History: Pain Findings: No acute fracture or dislocation is seen. Osseous alignment is anatomic. Ankle mortise and other visualized joint spaces are preserved. Soft tissues are otherwise unremarkable. Impression: Unremarkable left ankle. Reviewed, dictated and finalized at location . Impression: Unremarkable left ankle.
--- NOTE | ~2023-04-22 | CT_ITS ---
EXAMINATION: CT brain wo con INDICATION: Headache COMPARISON: 06/20/2022 TECHNIQUE: Standard unenhanced head CT. The dose-length product (DLP) was 681.00 mGy-cm. The mA was a djusted according to patient size. Iterative reconstruction technique was employed. FINDINGS: There is no acute intraparenchymal hemorrhage. No evidence of mass lesion. No evidence of a cute infarction. There is mild periventricular and subcortical hypodensity probably related to small vessel ischemic disease. There is mild prominence of the sulci and ventricles related to cerebral atr ophy. Intracranial calcified cerebral atherosclerosis is noted. There are no extra-axial collections. There is no mass effect or midline shift. Changes in the globes are likely from ocular lens surgery. The visualized sinuses and mastoid air cells are well aerated. IMPRESSION: 1. No acute intracranial abnormality. 2. Age related findings. Reviewed, dictated and finalized at location B.
[2023-04-22 09:28] VITALS: BP 141/60; PULSE 83; RESP 16; TEMP 36.8; O2SAT 100
--- NOTE | 2023-04-22 10:44 | ED.FALL ---
HPI - Fall General Chief Complaint: Fall <CHACHA Solis Last Filed: 04/22/23 19:04> Stated Complaint: fall/shoulder injury/ankle injury <CHACHA Solis Last Filed: 04/22/23 19:04> Time Seen by Provider: 04/22/23 09:26 <Alexandria Wilson PA-C - Last Filed: 04/22/23 19:04> History of Present Illness HPI Narrative: 88-year-old male with history of Parkinson's, hypertension, WINNIE, PVD, hyperlipidemia, dementia reports for evaluation for right shoulder pain, bilateral ankle pain, neck pain since a fall that occurred approximately 10 days ago. Patient's is present who assist with history. States patient was ambulating from the car to the house without his walker, tripped over a brick on the sidewalk and fell to the ground, landing on his right shoulder and rolling over to his back. He was wearing his helmet at the time, she is unsure if he hit his head. No LOC. Patient denies chest pain or shortness of breath, vision changes, focal numbness or weakness prior to fall. States he normally ambulates with a walker, however was using a walker at the time because he does not use a walker from the car to the house. He has frequent falls, ~3x per week per . States most of his pain is in the R shoulder. He has been ambulating since the fall. <CHACHA Solis Last Filed: 04/22/23 19:04> Related Data Home Medications: Home Medications Medication Instructions Recorded Confirmed carbidopa 25 mg-levodopa 100 mg 2 tablet PO QID 04/04/23 04/04/23 tablet lisinopril 20 mg tablet 20 mg PO BID 04/04/23 04/04/23 <CHACHA Solis Last Filed: 04/22/23 19:04> Allergies/Adverse Reactions: Allergies Allergy/AdvReac Type Severity Reaction Status Date / Time No Known Allergies Allergy Verified 04/22/23 09:32 <CHACHA Solis Last Filed: 04/22/23 19:04> Review of Systems Review of Systems: CONSTITUTIONAL: Denies fever, chills EYES: Denies visual changes, redness, or discharge. ENT: Denies rhinorrhea, congestion, sore throat, or otalgia. CARDIOVASCULAR: Denies chest pain, palpitations, or edema. RESPIRATORY: Denies cough or dyspnea. GASTROINTESTINAL: Denies abdominal pain, nausea, vomiting, or diarrhea. GENITOURINARY: Denies dysuria or hematuria. SKIN: Denies rash or itching. MUSCULOSKELETAL: See HPI NEUROLOGIC: Denies headache, numbness, dizziness, or weakness. PSYCHIATRIC: Denies anxiety or depression. <Alexandria Wilson PA-C - Last Filed: 04/22/23 19:04> [facility] Past Medical History Medical History: Medical History Benign prostatic hyperplasia Dementia Dyslipidemia Essential (primary) hypertension Memory loss Mixed hyperlipidemia Parkinson disease Psychophysiological insomnia Right bundle branch block Slow transit constipation Vocal cord dysfunction <Alexandria Wilson PA-C - Last Filed: 04/22/23 19:04> Surgical History Surgical History: Surgical History History of colonoscopy History of prostatectomy <Alexandria Wilson PA-C - Last Filed: 04/22/23 19:04> Family History Family History: Family History Mother Hypertension Sibling Malignant neoplasm of prostate, Onset Age: 62 Family history of primary malignant neoplasm of liver, Onset Age: 55 Patient's sister is Patient's brother is Father Hypertension <Alexandria Wilson PA-C - Last Filed: 04/22/23 19:04> Social History Social History: Social History Smoking status: Former smoker Second hand tobacco smoke exposure: No Alcohol intake: never Alcohol use details: Occasional alcohol use in moderation. Substance use: never Substance use type: does not use Lack of Transportation: No
[2023-04-22] MEDS: ACETAMINOPHEN 500 MG TABLET 1000 MG PO (11:13)
[2023-04-22 11:17] VITALS: BP 176/69; PULSE 64; O2SAT 100
[2023-04-22] MEDS: LIDOCAINE 5% PATCH 1 PATCH TRANSDERM (12:10)
[2023-04-22 12:28] VITALS: BP 166/69; PULSE 69; RESP 17; O2SAT 99
== END 2023-04-22 12:29 | disposition home or self-care (01) ==
PROVIDERS: Emergency Provider Physician Assistant; PCP Family Medicine
DX: S42.031A Displaced fracture of lateral end of right clavicle, initial encounter for closed fracture (principal); I10 Essential (primary) hypertension; E78.5 Hyperlipidemia, unspecified; G20 Parkinson's disease; F02.80 Dementia in other diseases classified elsewhere, unspecified severity, without behavioral disturbance, psychotic disturbance, mood disturbance, and anxiety; E78.2 Mixed hyperlipidemia; Z87.891 Personal history of nicotine dependence; W01.0XXA Fall on same level from slipping, tripping and stumbling without subsequent striking against object, initial encounter
CPT/HCPCS: 70450; 71250; 72125; 73030; 73610; 99284; A4565; A9270

== ENCOUNTER 2023-08-30 14:23 | Emergency (ER) | payer MEDICARE, SELFPAY ==
[2023-08-30] VITALS (20 sets, daily range): BP systolic 199–209; BP diastolic 66–86; PULSE 71–90; RESP 11–22; TEMP 37; O2SAT 94–100
--- NOTE | ~2023-08-30 | CT_ITS ---
EXAMINATION: CT brain wo con DATE: 08/30/2023 14:52 INDICATION: Fall. Head injury. Patient on blood thinner. TECHNIQUE: Computed tomography (CT) of the head was performed without intravenous contrast. The mA wa s adjusted according to patient size. Iterative reconstruction technique was employed. Exam dose: 68 1.00 mGy-cm total exam DLP. COMPARISON: 04/22/2023 CT brain FINDINGS: No intracranial mass lesion or hemorrhage or cerebrovascular accident, midline shift or mas s effect. There is nonspecific diminished attenuation of the cerebral white matter, likely due to chronic small vessel ischemic changes. Prominent bilateral carotid siphon internal carotid artery calcifications a re noted. No subdural or epidural hematoma. There is moderate cerebral and cerebellar volume loss consistent with patient age. The mastoid air cells and paranasal sinuses are normally developed and aerated with the exception of some mucoperiosteal thickening in the right frontoethmoid area and to a lesser extent left ethmoid ai r cells. IMPRESSION: Cerebral atherosclerosis and chronic small vessel ischemic changes of the cerebral white matter No skull fracture or acute intracranial abnormality Reviewed, dictated and finalized at Location A. Reviewed, dictated and finalized at location B. [employer]
--- NOTE | ~2023-08-30 | XR_ITS ---
EXAMINATION: XR shoulder RT min 2V, XR clavicle RT, XR chest 1V DATE: 08/30/2023 15:06 INDICATION: Right shoulder pain post fall TECHNIQUE: 1. AP view of the chest was obtained. 2. AP internally and externally rotated and transscapular Y views of the right shoulder were obtained . 3. AP and cephalad angled AP views of the right clavicle were obtained. COMPARISON: None FINDINGS: Chest: Calcified nodule at the right upper lung zone and calcified right hilar lymph nodes consistent with o ld granulomatous disease. No other airspace opacities, pulmonary edema, pleural effusion or pneumotho rax. Cardiomediastinal silhouette is normal. Tortuous and atherosclerotic thoracic aorta. Right shoulder and clavicle: Oblique extra articular fracture of the lateral third of the right clavicle with 4 mm caudal displace ment of the head of the clavicle relative to the more medial diaphysis. Moderate acromioclavicular os teoarthritis. Moderate-sized anterior subacromial spur. Moderate glenohumeral osteoarthritis. Soft ti ssues are unremarkable. IMPRESSION: 1. 4 mm caudal displacement of an oblique extra articular fracture at the lateral third of the right clavicle. 2. 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 3. No acute cardiopulmonary disease. Reviewed, dictated and finalized at location A. 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 4 mm caudal displacement of an oblique extra articular fracture at the later al third of the right clavicle. 2. 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 3. No acute cardiopulmonary disease. IMPRESSION: 1. 4 mm caudal displacement of an oblique extra articular fracture at the later al third of the right clavicle. 2. 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 3. No acute cardiopulmonary disease.
--- NOTE | ~2023-08-30 | CT_ITS ---
EXAMINATION: CT cervical spine wo con DATE: 08/30/2023 14:52 INDICATION: Head injury. TECHNIQUE: Computed tomography (CT) of the cervical spine was performed without intravenous contrast. Automated exposure control and iterative reconstruction technique were employed. The dose-length pro duct was 125.90 mGy-cm. COMPARISON: CT cervical spine 04/22/2023 FINDINGS: Bone alignment is normal. There is mild chronic anterior wedging of C6 and T1 vertebral bod ies. There is mildly decreased disc height at C3-C4, severely decreased disc height at C5-C6, and mod erately decreased disc height at C6-C7. The following disc levels are specifically discussed: C2-C3: There is mild bilateral uncovertebral joint osteoarthritis. There is moderate right and severe left facet joint osteoarthritis. There is mild left neural foraminal stenosis. There is mild central canal stenosis. C3-C4: There is moderate right and severe left uncovertebral joint osteoarthritis. There is severe bi lateral facet joint osteoarthritis. There is mild right and moderate left neural foraminal stenosis. There is mild central canal stenosis. C4-C5: There is mild right and moderate left uncovertebral joint osteoarthritis. There is severe righ t facet joint osteoarthritis. There is ankylosis of left facet joint with severe hypertrophy. There i s mild right and moderate left neural foraminal stenosis. There is mild central canal stenosis. C5-C6: There is severe bilateral uncovertebral joint osteoarthritis. There is mild right and severe l eft facet joint osteoarthritis. There is moderate bilateral neural foraminal stenosis. There is mild central canal stenosis. C6-C7: There is mild right and severe left uncovertebral joint osteoarthritis. There is severe bilate ral facet joint osteoarthritis. There is mild bilateral neural foraminal stenosis. There is mild cent ral canal stenosis. C7-T1: There is no uncovertebral joint osteoarthritis. There is severe bilateral facet joint osteoart hritis. There is mild bilateral neural foraminal stenosis. There is no central canal stenosis. IMPRESSION: 1. No fracture. 2. Severe cervical spondylosis. Reviewed, dictated and finalized at location A. 

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
--- NOTE | 2023-08-30 17:47 | ED.FALL ---
HPI - Fall General Chief Complaint: Fall Stated Complaint: fall/ head injury Time Seen by Provider: 08/30/23 16:41 Source: patient Mode of arrival: ambulatory Limitations: no limitations History of Present Illness HPI Narrative: 88-year-old male history of dementia presents today for a fall at home. Patient and patient's states he was sitting in a chair when he fell backwards and hit his head. Patient denies any headache, dizziness, lightheadedness but does have some right upper arm pain at this time. Full range of motion. Patient is alert oriented times 1-2. Per this is baseline. Fall from: chair Related Data Allergies Allergy/AdvReac Type Severity Reaction Status Date / Time No Known Allergies Allergy Verified 08/30/23 14:34 Review of Systems Review of Systems: All systems reviewed & are unremarkable except as noted in HPI and below PMFSH Past Medical History Medical History (Updated 08/30/23 @ 18:15 by Jesenia Santos APRN) Benign prostatic hyperplasia Dementia Dyslipidemia Essential (primary) hypertension Memory loss Mixed hyperlipidemia Parkinson disease Psychophysiological insomnia Right bundle branch block Slow transit constipation Vocal cord dysfunction Surgical History Surgical History History of colonoscopy History of prostatectomy Family History Family History Mother Hypertension Sibling Malignant neoplasm of prostate, Onset Age: 62 Family history of primary malignant neoplasm of liver, Onset Age: 55 Patient's sister is Patient's brother is Father Hypertension Social History Social History Smoking status: Former smoker Second hand tobacco smoke exposure: No Alcohol intake: never Alcohol use details: Occasional alcohol use in moderation. Substance use: never Substance use type: does not use Lack of Transportation: No Lack of Food: Never True Current Housing: I Have Housing Concerned About Future Housing: No Difficulty Paying Gas/Electric Bills: No Difficulty Paying for Meds: No Currently Unemployed: No Education: Master's Degree or Higher Difficulty w/ Childcare or Family Care: No Living arrangements: with family Additional living arrangements comments: and remarried about 5 years ago. 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 Spiritual care concerns: No Exam Const: General: cooperative, healthy appearing, comfortable, no acute distress and well developed Other: Alert oriented times 1-2 at baseline per HENMT: Head: normal to inspection Eyes: General: appearance normal, both eyes and all related structures Resp: Effort & Inspection: normal respiratory effort and able to speak in complete sentences Auscultation: clear to auscultation bilaterally Cardio: Rate: regular rate Rhythm: regular rhythm Heart sounds: S1 normal heart sound present and S2 normal heart sound present Neuro: General: CN's II-XI intact bilaterally Extrem: Other: no deformity or ecchymosis noted to right shoulder. Slight tenderness right shoulder. No tenderness noted anywhere else. Patient slept stable without pain. Course Vital Signs Vital signs: Vital Signs Temperature 98.6 F 08/30/23 14:19 Pulse Rate 90 08/30/23 14:19 Respiratory Rate 19 08/30/23 14:19 Blood Pressure 199/66 H 08/30/23 14:19 Pulse Oximetry 97 08/30/23 14:19 Oxygen Delivery Room Air 08/30/23 14:19 Temperature 98.6 F 08/30/23 14:19 Pulse Rate 79 08/30/23 18:52 Respiratory Rate 18 08/30/23 18:52 Blood Pressure 202/84 H 08/30/23 18:52 Pulse Oximetry 99 08/30/23 18:52 Oxygen Delivery Room Air 08/30/23 14:19 MDM - Fall MDM Narrative Medical decision making narrat
== END 2023-08-30 18:54 | disposition home or self-care (01) ==
PROVIDERS: Emergency Provider Nurse Practitioner Family; PCP Family Medicine
DX: S42.031A Displaced fracture of lateral end of right clavicle, initial encounter for closed fracture (principal); E78.2 Mixed hyperlipidemia; I10 Essential (primary) hypertension; G20.A1 Parkinson's disease without dyskinesia, without mention of fluctuations; F02.80 Dementia in other diseases classified elsewhere, unspecified severity, without behavioral disturbance, psychotic disturbance, mood disturbance, and anxiety; Z87.891 Personal history of nicotine dependence
CPT/HCPCS: 70450; 71045; 72125; 73000; 73030; 99284; A4565

== ENCOUNTER 2024-07-12 16:03 | Emergency (ER) | payer MEDICARE, SELFPAY ==
--- NOTE | ~2024-07-12 | CT_ITS ---
CT brain wo con Ordering provider: Wan Celaya MD History: 89 years Male with . fall . Comparison: August 30, 2023 Technique: CT of the head without contrast. Radiation reduction technique utilized. The dose-length product was 605.33 mGy-cm. FINDINGS: BRAIN PARENCHYMA AND CSF SPACES: Mild leukoaraiosis and diffuse cortical atrophy. Mild atheromatous d isease. No midline shift, mass effect or hemorrhage. The brain parenchyma and CSF spaces are otherwi se normal. VISUALIZED PARANASAL SINUSES: Well aerated. MASTOIDS: Well aerated. BONES: The bones appear intact. SOFT TISSUES: Visualized nasopharynx is normal. Superficial soft tissues are normal. IMPRESSION: No acute intracranial findings. Reviewed, dictated and finalized at location A.
--- NOTE | ~2024-07-12 | CT_ITS ---
CT cervical spine wo con Ordering provider: Wan Celaya MD History: . fall . Comparison: None. Technique: CT of the cervical spine was performed without contrast. Sagittal and coronal reformatted images were also obtained and reviewed. Automated exposure control and iterative reconstruction alondra hnique were employed. The dose-length product was 158.90 mGy-cm. FINDINGS: VERTEBRAE: Anterior loss of volume of C2 which may be acute or chronic. Increased density in the supe rior endplate of T1 which may indicate a fracture. MRI evaluation may be helpful to differentiate acu te from chronic fracture. Otherwise, No subluxation or acute fracture. The occipital condyles are int act. DISC SPACES: Narrowing of the disc C5-C6 and C6-C7. Multilevel facet joint disease. Multilevel uncove rtebral joint osteoarthritic changes. Multilevel intervertebral foraminal narrowing. PARASPINOUS SOFT TISSUES: Normal. IMPRESSION: Loss of volume of T1 and T2 which may indicate acute or chronic fracture. MRI evaluation advised. Oth erwise, No acute osseous abnormality cervical spine. Multilevel degenerative disc disease, facet joint disease and uncovertebral joint osteoarthritic santiago ges. Reviewed, dictated and finalized at location A. IMPRESSION: Loss of volume of T1 and T2 which may indicate acute or chronic fracture. MRI e valuation advised. Otherwise, No acute osseous abnormality cervical spine. Multilevel degenerative disc disease, facet joint disease and uncovertebral taina nt osteoarthritic changes.
[2024-07-12 16:12] VITALS: BP 166/84; PULSE 84; RESP 14; TEMP 36.3; O2SAT 100
--- NOTE | 2024-07-12 16:20 | ED.FALL ---
HPI - Fall General Chief Complaint: Fall Stated Complaint: GLF Time Seen by Provider: 07/12/24 16:09 Source: patient Mode of arrival: EMS Limitations: no limitations History of Present Illness HPI Narrative: 89 YEARS OLD WHITE MALE HISTORY OF [place], TAKING A SHOWER, LOST BALANCE AND FELL ON THE FLOOR. NO LOSS OF CONSCIOUSNESS, IS NOT ON ANTI-PLATELET OR ANTICOAGULANT MEDICATION. PATIENT COMPLAINING OF OCCIPITAL HEADACHE, DENIES ANY OTHER INJURIES Related Data Allergies Allergy/AdvReac Type Severity Reaction Status Date / Time No Known Allergies Allergy Verified 05/01/24 13:12 Review of Systems Review of Systems: All systems reviewed & are unremarkable except as noted in HPI and below PMFSH Past Medical History Medical History Benign prostatic hyperplasia Dementia Dyslipidemia Essential (primary) hypertension Memory loss Mixed hyperlipidemia Parkinson disease Polypharmacy Psychophysiological insomnia PVD (peripheral vascular disease) Right bundle branch block Slow transit constipation Vocal cord dysfunction Surgical History Surgical History History of colonoscopy History of prostatectomy Family History Family History Mother Hypertension Sibling Malignant neoplasm of prostate, Onset Age: 62 Family history of primary malignant neoplasm of liver, Onset Age: 55 Patient's sister is Patient's brother is Father Hypertension Social History Social History Social History: Smoking status: Former smoker Second hand tobacco smoke exposure: No Alcohol intake: never Alcohol use details: Occasional alcohol use in moderation. Substance use: never Substance use type: does not use Lack of Transportation: No Lack of Food: Never True Current Housing: I Have Housing Concerned About Future Housing: No Difficulty Paying Gas/Electric Bills: No Difficulty Paying for Meds: No Currently Unemployed: YES Education: Master's Degree or Higher Difficulty w/ Childcare or Family Care: No Living arrangements: with family Additional living arrangements comments: and remarried about 5 years ago. 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 Gender identity (if verbalized by the patient): Male Sexual Orientation (if Verbalized by the Patient): Straight or Heterosexual Spiritual care concerns: No Exam Narrative: GENERAL APPEARANCE: WELL-DEVELOPED, WELL-NOURISHED SKIN: NORMAL COLOR RIGHT ELBOW ABRASION POSTERIOR HEAD: NORMOCEPHALIC, OCCIPITAL LACERATION EYES: CLEAR CONJUNCTIVA ENT: OROPHARYNX NORMAL, EARS NORMAL, NOSE NORMAL NECK: C-COLLAR IN PLACE CHEST AND RESPIRATORY: AIRWAY PATENT, NO RESPIRATORY DISTRESS, NO ACCESSORY MUSCLE USE HEART: REGULAR RATE/RHYTHM ABDOMEN: SOFT, NONTENDER, NO ORGANOMEGALY, QUIET BOWEL SOUNDS VASCULAR: NORMAL PERIPHERAL PULSES, NORMAL CAPILLARY REFILL. MUSCULOSKELETAL: NORMAL RANGE OF MOTION, NONTENDER BACK NEUROLOGIC: ALERT AND ORIENTED ?3, SUPERINTENDENT DRIVERS IS NORMAL TESTED, NO GROSS MOTOR DEFICIT Course Vital Signs Vital signs: Vital Signs Temperature 36.3 C L 07/12/24 16:12 Pulse Rate 84 07/12/24 16:12 Respiratory Rate 14 07/12/24 16:12 Blood Pressure 166/84 H 07/12/24 16:12 Pulse Oximetry 100 07/12/24 16:12 Temperature 36.3 C L 07/12/24 16:12 Pulse Rate 84 07/12/24 16:12 Respiratory Rate 14 07/12/24 16:12 Blood Pressure 166/84 H
[2024-07-12] MEDS: TETANUS,DIPHTHERIA,AC PERTUSSIS ADULT (0.5 ML) BOOSTRIX IM (18:16)
--- NOTE | 2024-07-12 18:16 | PC.NURSE ---
Pt and family declined NH services offered by EDP dr. ash. They state they will reach out to PCP for rehab.
[2024-07-12 18:33] VITALS: BP 166/91; PULSE 91; RESP 20; TEMP 36.9; O2SAT 97
== END 2024-07-12 18:35 | disposition home or self-care (01) ==
PROVIDERS: Emergency Provider Emergency Medicine; PCP Family Medicine
DX: S01.01XA Laceration without foreign body of scalp, initial encounter (principal); W18.2XXA Fall in (into) shower or empty bathtub, initial encounter; F03.90 Unspecified dementia, unspecified severity, without behavioral disturbance, psychotic disturbance, mood disturbance, and anxiety; G20.A1 Parkinson's disease without dyskinesia, without mention of fluctuations; E78.5 Hyperlipidemia, unspecified; I10 Essential (primary) hypertension; Z23 Encounter for immunization
CPT/HCPCS: 12001; 70450; 72125; 90471; 90715; 99284

== ENCOUNTER 2024-07-26 18:44 | Emergency (ER) | payer MEDICARE, SELFPAY ==
--- NOTE | ~2024-07-26 | XR_ITS ---
EXAM: XR shoulder RT min 2V DATE: 07/26/2024 20:02 HISTORY: fall . COMPARISON: None available. FINDINGS: The shoulder is held in an internally rotated and elevated position. Decreased mineralizat ion. Old healed distal right clavicular fracture No acute fracture or dislocation. No lytic or blasti c lesion. Moderate degenerative changes in the AC joint and glenohumeral joint. No erosion or periost eal change. Calcified right upper lung granuloma. IMPRESSION: No acute osseous finding in the right shoulder. Reviewed, dictated and finalized at location K.
--- NOTE | ~2024-07-26 | CT_ITS ---
EXAMINATION: CT brain wo con DATE: 07/26/2024 19:50 INDICATION: fall . TECHNIQUE: Computed tomography (CT) of the head was performed without intravenous contrast. The mA wa s adjusted according to patient size. Iterative reconstruction technique was employed. The dose-lengt h product was 681.00 mGy-cm. COMPARISON: 07/12/2024. FINDINGS: No acute intracranial hemorrhage or extra-axial fluid collection. No hydrocephalus, mass, or herniation. No acute ischemic infarct. Unremarkable dural venous sinus attenuation. No acute osseous abnormality. Mild anterior ethmoid mucosal thickening, the remaining aerated spaces are clear. Mild atrophy and chronic white matter change. Atherosclerotic intracranial calcification. Bilateral l ens replacements. IMPRESSION: No acute intracranial process. Reviewed, dictated and finalized at location K.
--- NOTE | ~2024-07-26 | XR_ITS ---
EXAM: XR elbow RT 2V DATE: 07/26/2024 20:02 HISTORY: fall . COMPARISON: None available. FINDINGS: Exam limited by hyperflexion in the lateral view, which could obscure a subtle joint effusi on which can probably presence of occult fractures. Normal mineralization. No fracture or dislocation . No lytic or blastic lesion. Mild degenerative change at the elbow. No erosion or periosteal change. Marked soft tissue swelling over the olecranon and proximal ulna. IMPRESSION: Large soft tissue contusion/hematoma over the olecranon and proximal ulna. No definite acute fracture detected, however examination is limited by positioning difficulties in th e lateral view. Reviewed, dictated and finalized at location K. IMPRESSION: Large soft tissue contusion/hematoma over the olecranon and proxima l ulna. No definite acute fracture detected, however examination is limited by position ing difficulties in the lateral view.
--- NOTE | ~2024-07-26 | CT_ITS ---
EXAMINATION: CT cervical spine wo con DATE: 07/26/2024 19:50 INDICATION: fall TECHNIQUE: Computed tomography (CT) of the cervical spine was performed without intravenous contrast. Automated exposure control and iterative reconstruction technique were employed. The dose-length pro duct was 172.41 mGy-cm. COMPARISON: None. FINDINGS: Vertebral Body Alignment: Intact. Craniocervical and atlantoaxial alignment: Moderate degenerative change. Alignment intact. Osseous structures/fracture: No evidence of a lytic or blastic process in the visualized spine. No a cute fracture of the cervical spine. Slight interval height loss at the previously described burst fr acture at T2. No significant retropulsion. Cervical soft tissues: The paraspinal soft tissues planes are maintained. Degenerative changes: Multilevel mild and moderate degrees of degenerative disc disease. Multilevel m oderate and severe degrees of facet arthropathy. Multilevel severe neural foraminal narrowing. No sev ere central canal narrowing. IMPRESSION: No acute fracture or traumatic malalignment in the cervical spine. Slight interval increased height loss at the subacute T2 burst fracture. Reviewed, dictated and finalized at location K.
[2024-07-26 18:48] VITALS: BP 188/97; PULSE 83; RESP 20; TEMP 36.5; O2SAT 96
--- NOTE | 2024-07-26 19:20 | ED.FALL ---
HPI - Fall General Chief Complaint: Fall Stated Complaint: fall, rt shoulder injury Time Seen by Provider: 07/26/24 19:05 History of Present Illness HPI Narrative: 89-year-old male with past medical history significant for Parkinson's dementia, hypertension, peripheral vascular disease on Xarelto. Patient has a history of frequent falls and is currently being evaluated by his primary care provider for jail placement as his decided that the care. Patient was recently seen at [facility] for a fall with head trauma. Today presents to the emergency department after another ground level fall. EMS was called to the home and patient was on the ground. He had an obvious deformity to his right elbow. Skin tears and hematoma to the right elbow. present at that time states he did not lose consciousness. He has a history of advanced dementia and initially is alert oriented x2 but very difficult to understand secondary to his speech patterns. Presently is complaining of shoulder pain and elbow pain but no headache, vision changes, chest pain, shortness a breath, abdominal pain, pelvis pain. States he is very weak and cannot get off the ground by himself. Intermittently uses walker. Related Data Allergies Allergy/AdvReac Type Severity Reaction Status Date / Time No Known Allergies Allergy Verified 07/23/24 15:06 Review of Systems Review of Systems: As reviewed above in HPI [facility] Past Medical History Medical History Benign prostatic hyperplasia Dementia Dyslipidemia Essential (primary) hypertension Memory loss Mixed hyperlipidemia Parkinson disease Polypharmacy Psychophysiological insomnia PVD (peripheral vascular disease) Right bundle branch block Slow transit constipation Vocal cord dysfunction Surgical History Surgical History History of colonoscopy History of prostatectomy Family History Family History Mother Hypertension Sibling Malignant neoplasm of prostate, Onset Age: 62 Family history of primary malignant neoplasm of liver, Onset Age: 55 Patient's sister is Patient's brother is Father Hypertension Social History Social History Social History: Smoking status: Former smoker Second hand tobacco smoke exposure: No Alcohol intake: never Alcohol use details: Occasional alcohol use in moderation. Substance use: never Substance use type: does not use Lack of Transportation: No Lack of Food: Never True Current Housing: I Have Housing Concerned About Future Housing: No Difficulty Paying Gas/Electric Bills: No Difficulty Paying for Meds: No Currently Unemployed: YES Education: Master's Degree or Higher Difficulty w/ Childcare or Family Care: No Living arrangements: with family Additional living arrangements comments: and remarried about 5 years ago. 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 Gender identity (if verbalized by the patient): Male Sexual Orientation (if Verbalized by the Patient): Straight or Heterosexual Spiritual care concerns: No Exam Narrative: GENERAL: [Well-appearing, well-nourished, and in no acute distress.] HEAD: [Normocephalic, atraumatic.] EYES: [PERRLA and EOMI.] ENT: Nares clear, no rhinorrhea or epistaxis. Mucous membranes moist. NECK: Supple. CHEST: [Clear to auscultation. No respiratory distress.] HEART: [Regular rate and rhythm]. No murmur heard. [Normal peripheral pulses.] ABDOMEN: [Soft, nondistended], [nontender], [No rigidity or guarding] EXTREMITIES: Deformity versus large hematoma to the right elbow, limited extension of the elbow, good flexion of the elbo
[2024-07-26 19:23] VITALS: BP 192/105; PULSE 86; RESP 16; O2SAT 100
--- NOTE | 2024-07-26 19:29 | ECG_ITS ---
Test Date: 2024-07-26 20:39:33 Measurements Intervals [place] Rate: 80 P: 42 KS: 158 QRS: -36 QRSD: 128 T: -8 QT: 423 QTc: 489 Interpretive Statements SINUS RHYTHM LEFT AXIS DEVIATION [QRS AXIS < -30] RIGHT BUNDLE BRANCH BLOCK [120+ ms QRS DURATION, UPRIGHT V1, 40+ ms S IN I/aVL/V4/V5/V6] Compared to ECG 07/26/2024 20:12:55 Right bundle-branch block now present Myocardial infarct finding no longer present ST (T wave) deviation no longer present Electronically Signed On 07-27-2024 14:26:24 CDT by Aj Rodriguez M.D.
[2024-07-26] MEDS: lisinopriL 20 MG TABLET PO (20:16)
[2024-07-26 20:42] LABS: Basophils Percent Auto 0.3 % (0.2-1.2); Eosinophils Absolute Auto 0.2 K/mm3 (0-0.3); Eosinophils Percent Auto 1.6 % (0-4.4); Hematocrit 40.6 % (42.0-52.0); Hemoglobin 13.3 g/dL (14.0-18.0); Immature Granulocyte Absolute 0.03 K/mm3 (0.00-0.031); Immature Granulocyte Percent A 0.3 % (0-0.5); Lymphocytes Percent Auto 9.3 % (18.3-44.2); Mean Corpuscular HGB Conc 32.8 g/dl (32-36); Mean Corpuscular Hemoglobin 31.2 pg (26-34); Mean Corpuscular Volume 95.3 fl (80-100); Mean Platelet Volume 9.8 fl (7.4-10.4); Monocytes Absolute Auto 0.6 K/mm3 (0.1-0.6); Monocytes Percent Auto 5.7 % (2.6-8.5); Neutrophils Percent Auto 82.8 % (45.5-73.1); Platelet Count Result 229 k/mm3 (150-375); Red Blood Count 4.26 M/mm3 (4.6-6.20); Red Cell Distribution Width 13.8 % (11.5-14.5); White Blood Count 9.6 K/mm3 (4.5-10.0)
[2024-07-26 20:55] LABS: Prothrombin Time 13.2 Seconds (11.1-14.7)
[2024-07-26 21:03] LABS: Anion Gap 9 mmol/L (4-12); Blood Urea Nitrogen 34 mg/dL (9-20); Calcium 9.1 mg/dL (8.4-10.2); Carbon Dioxide 29 mmol/L (22-30); Chloride 100 mmol/L (98-107); Estimated CRCL calculation 39 ml/min; Estimated Glomerular Filt Rate > 60; Glucose 96 mg/dL (65-110); Potassium 4.3 mmol/L (3.4-5.0); Sodium 138 mmol/L (137-145)
[2024-07-26 21:21] VITALS: BP 100/55; PULSE 87; RESP 20
[2024-07-26 22:20] VITALS: BP 123/58; PULSE 76; RESP 23; O2SAT 97
== END 2024-07-26 22:35 | disposition home or self-care (01) ==
PROVIDERS: Emergency Provider Student in an Organized Health Care Education/Training Program; PCP Family Medicine
DX: S50.02XA Contusion of left elbow, initial encounter (principal); G20.A1 Parkinson's disease without dyskinesia, without mention of fluctuations; F02.80 Dementia in other diseases classified elsewhere, unspecified severity, without behavioral disturbance, psychotic disturbance, mood disturbance, and anxiety; R29.6 Repeated falls; I73.9 Peripheral vascular disease, unspecified; I10 Essential (primary) hypertension; E78.2 Mixed hyperlipidemia; N40.0 Benign prostatic hyperplasia without lower urinary tract symptoms; Z87.891 Personal history of nicotine dependence; Z90.79 Acquired absence of other genital organ(s); I45.10 Unspecified right bundle-branch block; W18.30XA Fall on same level, unspecified, initial encounter
CPT/HCPCS: 36415; 70450; 72125; 73030; 73070; 80048; 85025; 85610; 85730; 86850; 86900; 86901; 93005; 99284; A9270

== ENCOUNTER 2024-10-15 19:56 | Inpatient (IN) | payer MEDICARE, SELFPAY ==
[2024-10-15 19:58] VITALS: BP 146/81; PULSE 82; RESP 17; TEMP 36.6; O2SAT 93
--- NOTE | 2024-10-15 20:46 | PC.NURSE ---
Per Dr. Dominguez, this RN called [facility] and asked them to fax pt. DNR paperwork to [facility] at fax #: . Saloni at facility confirms that she will fax paperwork EMA. Dr. Dominguez at bedside speaking with pt. family.
[2024-10-15] MEDS: LORazepam INJ (*CRX) 2 MG/ML VIAL 1 MG IV PUSH (20:58)
[2024-10-15] MEDS: MORPHINE SULFATE (*CRX) 4 MG/ML INJ IV PUSH (20:58)
[2024-10-15] MEDS: SCOPOLAMINE 1 MG PATCH 1 PATCH TRANSDERM (20:59)
--- NOTE | 2024-10-15 21:07 | ED.GENADULT ---
HPI - General Adult General Chief complaint: Shortness of Breath/Dyspnea Stated complaint: possible aspiration Time Seen by Provider: 10/15/24 19:57 Related Data Allergies Allergy/AdvReac Type Severity Reaction Status Date / Time No Known Allergies Allergy Verified 07/23/24 15:06 [facility] Past Medical History Medical History Benign prostatic hyperplasia Dementia Dyslipidemia Essential (primary) hypertension Memory loss Mixed hyperlipidemia Parkinson disease Polypharmacy Psychophysiological insomnia PVD (peripheral vascular disease) Right bundle branch block Slow transit constipation Vocal cord dysfunction Surgical History Surgical History History of colonoscopy History of prostatectomy Family History Family History Mother Hypertension Sibling Malignant neoplasm of prostate, Onset Age: 62 Family history of primary malignant neoplasm of liver, Onset Age: 55 Patient's sister is Patient's brother is Father Hypertension Social History Social History Social History: Smoking status: Former smoker Second hand tobacco smoke exposure: No Alcohol intake: never Alcohol use details: Occasional alcohol use in moderation. Substance use: never Substance use type: does not use Lack of Transportation: No Lack of Food: Never True Current Housing: I Have Housing Concerned About Future Housing: No Difficulty Paying Gas/Electric Bills: No Difficulty Paying for Meds: No Currently Unemployed: YES Education: Master's Degree or Higher Difficulty w/ Childcare or Family Care: No Living arrangements: with family Additional living arrangements comments: and remarried about 5 years ago. 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 Gender identity (if verbalized by the patient): Male Sexual Orientation (if Verbalized by the Patient): Straight or Heterosexual Spiritual care concerns: No Exam Narrative: APPEARANCE: Patient is responsive to voice, he cannot follow commands, debilitated Head: atraumatic. EYES: EOMI, NOSE: Atraumatic NECK: large neck brace in position RESPIRATORY: gasping respirations, scattered rhonchi CARDIOVASCULAR: RRR, ABDOMINAL: Non-distended MUSCULOSKELETAl: No obvious deformities NEURO: Alert. move for 4 extremities to pain SKIN:: pale PSYCHIATRIC: Normal affect Course Vital Signs Vital signs: Vital Signs Temperature 98 F 10/15/24 19:58 Pulse Rate 82 10/15/24 19:58 Respiratory Rate 17 10/15/24 19:58 Blood Pressure 146/81 H 10/15/24 19:58 Pulse Oximetry 93 10/15/24 19:58 Oxygen Delivery Room Air 10/15/24 19:58 Temperature 98 F 10/15/24 19:58 Pulse Rate 82 10/15/24 22:56 Respiratory Rate 14 10/15/24 22:56 Blood Pressure 88/60 L 10/15/24 22:56 Pulse Oximetry 94 10/15/24 22:56 Oxygen Delivery Room Air 10/15/24 22:56 Medical Decision Making MDM Narrative Medical decision making narrative: -Course: 89-year-old male presenting altered mental status. Patient's health has been deteriorating rapidly over the last 2 months. Goals of care were discussed with the patient's made comfort measures. Patient put on a morphine drip for pain/air hunger. Admitted to under Dr. Cheng. Vital Signs Vital Signs: Vital Signs Temperature 98 F 10/15/24 19:58 Pulse Rate 82 10/15/24 19:58 Respiratory Rate 17 10/15/24 19:58 Blood Pressure 146/81 H 10/15/24 19:58 Pulse Oximetry 93 10/15/24 19:58 Oxygen Delivery Room Air 10/15/24 19:58 Temperature 98 F 10/15/24 19:58 Pulse Rate 82 10/15/24 22:56 Respiratory Rate 14 10/15/24 22:56 Blood Pressure 88/60 L 10/15/24 22:56 Pulse Oximetry 94 10/15/24 22:56 Oxygen Delivery Room Air 10/15/24 22:56 Discharge Plan Discharge Clinical Impression: End of life care Patient Disposition: Hospice ARA Inpatient Condition: Terminal Patient Language: Cymraes Prescriptions: No Action ipratropium bromide 21 mcg (0.03 %) spray,non-aerosol 2 spray intranasal BID Qty: 30 0RF Rx Instructions: administer into each nostril lidocaine 1.8 % adhesive patch,medicated 1 patch topical DAILY Qty: 30 0RF Rx Instructions: leave on most painful area for up to 12 hrs. no more than 1 patch to be used in a 24-hour period. lisinopril 20 mg tablet See Rx Instructions .ROUTE .COMPLEX Qty: 200 2RF Dose Instruction: TAKE 1 TABLET BY MOUTH TWICE DAILY Rx Instructions: TAKE 1 TABLET BY MOUTH TWICE DAILY carbidopa-levodopa 25-100 mg tablet See Rx Instructions .ROUTE .COMPLEX Qty: 800 2RF Dose Instruction: TAKE 2 TABLETS BY MOUTH 4 TIMES DAILY WITH MEALS AND AT BEDTIME Rx Instructions: TAKE 2 TABLETS BY MOUTH 4 TIMES DAILY WITH MEALS AND AT BEDTIME Follow-up/Referrals: Nallely,Kaimlle Madrigal MD [Primary Care Provider] -
--- NOTE | 2024-10-15 21:08 | PC.NURSE ---
Received DNR paperwork and shown to Dr. Dominguez. Paperwork placed in pt. chart. Dr. Dominguez spoke with family at bedside. Per MD, care transitioning to comfort measures.
[2024-10-15 22:23] VITALS: PULSE 81; RESP 14
[2024-10-15] MEDS: MORPHINE 50 MG/NS 100ML (*CRX) 50 MG/100 ML BAG 8 MG IV CONT (22:23)
--- NOTE | 2024-10-15 22:47 | PC.NURSE ---
This RN spoke with Obe at [facility]. RN should be at bedside within an hour. [facility] updated that pt. is no longer at bedside but left her contact information: Carlee Asencio [phone]. HEBER Tavares updated.
--- NOTE | 2024-10-15 22:53 | PC.NURSE ---
Román at [facility] updated on pt. condition and plan.
[2024-10-15 22:56] VITALS: BP 88/60; PULSE 82; RESP 14; O2SAT 94
--- NOTE | 2024-10-15 23:00 | PC.NURSE ---
Report given to ANDRÉS Israel. Care to transition at this time.
--- NOTE | 2024-10-15 23:37 | PC.NURSE ---
Monica from [facility] hospice arrival to ED at this time. RN attempted to call pt to let her know Monica from hospice has arrived.
[2024-10-16 00:39] VITALS: BP 107/49; PULSE 79; RESP 11; O2SAT 89
--- NOTE | 2024-10-16 02:14 | PM.IMHP ---
H&P: HPI History of Present Illness Date/Time: 10/16/24 02:14 Chief Complaint: End of Life Care Narrative: This is a 89-year-old male patient with a history of dementia hypertension hyperlipidemia Parkinson's disease is brought to the emergency department difficulty breathing after aspiration. Patient recently suffered a fall resulting forehead lacerations and a C2 fracture. He has been in a cervical collar in brace. Patient reportedly aspirated couple of days ago and his health has declining for the last 2 months. Family elected to keep patient comfortable and in the emergency initiated comfort measures with morphine drip. Hospice was contacted and came to the emergency department to see patient but family was not present in the ER. The plan was to admit to hospice service but patient's could not sign necessary paperwork. The emergency department requested hospitalist service admit patient with plan to transition to [facility] later in the day if he does not pass away first. Patient is unconscious with decreased respiratory drive on morphine drip. No further HPI/ROS available. Review of Systems Review of Systems: ROS unobtainable: Yes unobtainable due to medical condition and unobtainable due to mental status PMFSH Past Medical History Medical History Benign prostatic hyperplasia Dementia Dyslipidemia Essential (primary) hypertension Memory loss Mixed hyperlipidemia Parkinson disease Polypharmacy Psychophysiological insomnia PVD (peripheral vascular disease) Right bundle branch block Slow transit constipation Vocal cord dysfunction Surgical History Surgical History History of colonoscopy History of prostatectomy Family History Family History Mother Hypertension Sibling Malignant neoplasm of prostate, Onset Age: 62 Family history of primary malignant neoplasm of liver, Onset Age: 55 Patient's sister is Patient's brother is Father Hypertension Social History Social History Social History: Smoking status: Former smoker Second hand tobacco smoke exposure: No Alcohol intake: unknown Alcohol use details: Occasional alcohol use in moderation. Substance use: unknown Substance use type: does not use Lack of Transportation: No Lack of Food: Never True Current Housing: I Have Housing Concerned About Future Housing: No Difficulty Paying Gas/Electric Bills: No Difficulty Paying for Meds: No Currently Unemployed: YES Education: Master's Degree or Higher Difficulty w/ Childcare or Family Care: No Living arrangements: with family Additional living arrangements comments: and remarried about 5 years ago. 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 Gender identity (if verbalized by the patient): Male Sexual Orientation (if Verbalized by the Patient): Straight or Heterosexual Spiritual care concerns: No Meds Home Medications and Allergies Home Medications ?Medication ?Instructions ?Recorded ?Confirmed ?Type carbidopa 25 mg-levodopa 100 mg See Rx Instructions .Route 02/12/24 10/16/24 Rx tablet .COMPLEX #800 tabs lisinopril 20 mg tablet See Rx Instructions .Route 02/12/24 10/16/24 Rx .COMPLEX #200 tabs amoxicillin 500 mg-potassium 1 tablet PO BID 10/16/24 10/16/24 History clavulanate 125 mg tablet potassium chloride 20 mEq 20 meq PO DAILY 10/16/24 10/16/24 History tablet,extended release(part/cryst) rivastigmine 4.6 mg/24 hour 4.6 mg transdermal Q24H 10/16/24 10/16/24 History transdermal patch Allergies Allergy/AdvReac Type Severity Reaction Status Date / Time No Known Allergies Allergy Verified 07/23/24 15:06 Vital Signs Vital Signs - 24 hr 10/15/24 19:58 10/15/24 22:23 10/15/24 22:56 Temperature 36.6 C Pulse Rate 82 81 82 Respiratory Rate 17 14 Blood Pressure 146/81 H Pulse Oximetry 93 Oxygen Delivery Room Air 10/15/24 22:56 10/15/24 22:56 10/16/24 00:39 Temperature Pulse Rate 82 79 Respiratory Rate 14 11 L Blood Pressure 88/60 L 107/49 L Pulse Oximetry 94 94 89 L Oxygen Delivery Room Air Exam Narrative: GENERAL: Unconscious with irregular respiratory pattern HEAD: Healing laceration left eyebrow and right forehead, cervical collar and brace in place CHEST: Shallow irregular respirations HEART: Mildly tachycardic with bounding radial pulses ABDOMEN: Soft, nontender, nondistended. EXTREMITIES: Normal range of motion. No peripheral edema. SKIN: Pale, Cool, Dry NEURO: Unconscious unresponsive H&P: Results Labs Labs: Deferred due to end of life care Pulse Oximetry SpO2 results: 62% on room air Attestation: I personally reviewed and interpreted this pulse oximetry as follows: Interpretation: No oxygen due to comfort measures end of life care Assessment and Plan Assessment and plan (1) End of life care: Code(s): Z51.5 - Encounter for palliative care Status: Acute Assessment and Plan: Patient was steady decline in health last 2 months C2 fracture recent aspiration now dyspneic and air hungry Family chose comfort measures ER started patient on morphine drip Attempted hospice admission family unable to sign paperwork so patient admitted to hospitalist service (2) Aspiration into airway: Code(s): T17.908A - Unspecified foreign body in respiratory tract, part unspecified causing other injury, initial encounter Status: Acute Assessment and Plan: Recent witness aspiration with worsening respiratory status leading to end of life care decision. Plan Comfort care/end of life care Quality If No VTE Prophylaxis Answer both mechanical and pharmacologic: Reason no mechanical VTE proph: patient/caregiver refusal Reason no pharmacologic proph: patient/caregiver refusal Hospitalist MIPS Advance Care Plan I have confirmed that the patient's Advanced Care Plan is present, code status is documented, or surrogate decision maker is listed in patient medical record.: Yes Medication Reconciliation I have utilized all available resources to obtain, update and review the patients current medications (includes all prescriptions, OTC, herbals, cannabis, and nutritional supplements).: Yes
[2024-10-16] MEDS: ATROPINE SULFATE 1% OPHTH SOLN 5 ML BOTTLE SUBLINGUAL (02:31)
[2024-10-16 04:45] VITALS: BP 99/44; PULSE 96; RESP 3; O2SAT 86
[2024-10-16 04:49] VITALS: PULSE 110; RESP 11; O2SAT 62
[2024-10-16] MEDS: LORazepam INJ (*CRX) 2 MG/ML VIAL IV PUSH (04:55)
--- NOTE | 2024-10-16 05:13 | ADMGEN ---
This patient, Charles Asencio, was admitted to 3 Med Surg Room 304-01. Patient/family oriented to hospital policies and general routines including ID bracelet, bed and alarms, visiting hours, pain management, procedures, bathroom and other care routines, personal items, smoking policy, room service/diet, and visiting hours. Information on how to activate the Rapid Response Team has been discussed. Patient/Family are encouraged to report perceived risks to care and to ask questions if they do not understand what they are told or what they should do.
--- NOTE | 2024-10-16 08:13 | PM.DDS ---
Discharge Summary Date and Time Date of : 10/16/24 Time of : 06:33 Provider Pronounced By: 2 RNs Name of First RN That Pronounced: eva stevens rn Name of Second RN That Pronounced: anne osorio rn Probable Cause of Probable Cause of : Acute Respiratory Failure related to aspiration pneumonia Summary Hospital Course: Patient brought to ER with respiratory failure related to witness aspiration event a few days ago. Patient has had rapidly declining health and he would have required intubation to treat his condition on arrival but family declined and chose comfort care per ER Attending. Much of history not known but patient was in C-Collar with back brace for reported C2 fracture. In ER patient was started on morphine drip for dyspnea/air hunger and end of life care. [facility] was contacted and came out to see patient but family not present to sign paperwork so patient admitted to Hospitalist Service with plan to get paperwork completed during the day if patient did not pass away. Patient found apneic/pulseless by nursing staff and time of declared at 0633. I was contacted and went to room to confirm no signs of life. Patient pulseless, apneic and no corneal reflex and no pupil response to light. 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
--- NOTE | 2024-10-16 11:01 | ECG_ITS ---
Test Date: 2024-10-15 20:05:39 Measurements Intervals Anderson Rate: 78 P: 34 CA: 141 QRS: -35 QRSD: 150 T: -15 QT: 442 QTc: 507 Interpretive Statements SINUS RHYTHM MARKED LEFT AXIS DEVIATION [QRS AXIS < -30] RIGHT BUNDLE BRANCH BLOCK [120+ ms QRS DURATION, UPRIGHT V1, 40+ ms S IN I/aVL/V4/V5/V6] Compared to ECG 07/26/2024 20:39:33 No significant changes Electronically Signed On 10-19-2024 14:52:00 [employer] ASSIST[employer] by Aj Rodriguez M.D.
== END 2024-10-16 06:33 | disposition expired | DRG 951 ==
LOC: ANHED 10-16 00:26 → ANH3MEDSUR 10-16 04:12
PROVIDERS: Admitting Provider General Practice; Emergency Provider Emergency Medicine; PCP Family Medicine; Visit Provider Nurse Practitioner
DX: Z51.5 Encounter for palliative care (principal); J96.01 Acute respiratory failure with hypoxia; J69.0 Pneumonitis due to inhalation of food and vomit; S12.100A Unspecified displaced fracture of second cervical vertebra, initial encounter for closed fracture; T17.908A Unspecified foreign body in respiratory tract, part unspecified causing other injury, initial encounter; S01.81XA Laceration without foreign body of other part of head, initial encounter; W19.XXXA Unspecified fall, initial encounter; N40.0 Benign prostatic hyperplasia without lower urinary tract symptoms; F03.90 Unspecified dementia, unspecified severity, without behavioral disturbance, psychotic disturbance, mood disturbance, and anxiety; E78.2 Mixed hyperlipidemia; G20.A1 Parkinson's disease without dyskinesia, without mention of fluctuations; I73.9 Peripheral vascular disease, unspecified; I45.10 Unspecified right bundle-branch block; I10 Essential (primary) hypertension
CPT/HCPCS: 93005; 96374; 96375; 99285; A9270; J2060; J2270